=== PATIENT | female | born 1955 | race African-American/Black ===

== ENCOUNTER 2017-05-07 09:08 | Emergency (ER) | payer MEDICARE, MEDICAID ==
[2017-05-07 10:23] LABS: Bilirubin Negative (Negative); Blood, Urine Small (Negative); Glucose, Urine (Dipstick) Negative (Negative); Ketone, Urine Negative (Negative); Nitrite Negative (Negative); Protein, Urine (Dipstick) 100 mg/dL (Neg-Trace); Urobilinogen 0.2 mg/dL (0.2-1.0)
[2017-05-07 10:25] LABS: Bacteria/HPF 1+ HPF (None Seen)
[2017-05-07 10:42] LABS: Hyaline Casts/LPF 0-3 HYALINE CAST LPF (0-3 Hyaline); RBC/HPF 0-3 HPF (0-3); Yeast-All Forms None Seen HPF (None Seen)
[2017-05-07 10:42] LABS: #Eosinphils 0.4 thou/uL (0.0-0.7); #Lymphocytes 1.8 thou/uL (1.20-3.40); #Monocytes 0.7 thou/uL (0.11-0.59); #Neutrophils 5.1 thou/uL (1.40-6.50); %Basophils 0.2 % (0.0-1.0); %Eosinophils 4.4 % (0.0-10.0); %Lymphocytes 21.9 % (21.0-51.0); %Monocytes 9.3 % (0.0-10.0); Hematocrit 38.2 % (36.0-47.0); Mean Platelet Volume 8.3 fL (7.4-10.4)
[2017-05-07 10:50] LABS: Lactic Acid - Sepsis 1.5 mmol/L (0.5-2.2)
[2017-05-07 10:54] LABS: ALT (SGPT) Less than 7 U/L (8-55); AST (SGOT) 13 U/L (5-34); Alkaline Phosphatase 144 U/L (40-150); Anion Gap 11 mmol/L (10-20); BUN (Urea Nitrogen) 14 mg/dL (9.8-20.1); Bilirubin, Total 0.3 mg/dL (0.2-1.2); CK (CPK) 129 U/L (29-168); Calc. Creatinine Clearance 0 mL/min (70-130); Calcium 9.5 mg/dL (7.8-10.44); Carbon Dioxide 22 mmol/L (22-29); Chloride 112 mmol/L (98-107); Estimated GFR-MDRD 28; Globulin 4.4 g/dL (2.4-3.5); Protein, Total 7.6 g/dL (6.0-8.3)
[2017-05-07 10:59] LABS: Troponin I 0.022 ng/mL (< 0.028)
[2017-05-07] MEDS ORDERED: Ondansetron ODT 4 MG TAB ONE (11:46)
[2017-05-07] MEDS ORDERED: cefTRIAXone\\ROCEPHIN 500 MG VIAL ONE (12:15)
[2017-05-07] MEDS ORDERED: Lidocaine 1% PF 5 ML VIAL ONE (12:15)
== END 2017-05-07 12:43 | disposition home or self-care (01) ==
LOC: ERS 09:08
DX: R11.0 Nausea (principal); R19.7 Diarrhea, unspecified; F32.9 Major depressive disorder, single episode, unspecified; E11.22 Type 2 diabetes mellitus with diabetic chronic kidney disease; I12.0 Hypertensive chronic kidney disease with stage 5 chronic kidney disease or end stage renal disease; N18.6 End stage renal disease; Z79.82 Long term (current) use of aspirin; Z79.899 Other long term (current) drug therapy
CPT/HCPCS: 36415; 80053; 81003; 81015; 82550; 82553; 83605; 83880; 84484; 85025; 87086; J0696; J2001; Q0162

== ENCOUNTER 2017-05-07 19:56 | Emergency (ER) | payer MEDICARE, OTHER ==
[2017-05-07] MEDS ORDERED: Metoclopramide HCl 10 MG/2 ML VIAL ONE (21:33)
== END 2017-05-07 23:59 | disposition home or self-care (01) ==
LOC: ERS 19:56
DX: R19.7 Diarrhea, unspecified (principal); R11.0 Nausea; I12.0 Hypertensive chronic kidney disease with stage 5 chronic kidney disease or end stage renal disease; E11.22 Type 2 diabetes mellitus with diabetic chronic kidney disease; N18.6 End stage renal disease; F32.9 Major depressive disorder, single episode, unspecified; Z85.41 Personal history of malignant neoplasm of cervix uteri; Z79.899 Other long term (current) drug therapy; Z79.82 Long term (current) use of aspirin
CPT/HCPCS: 36415; 80053; 81003; 81015; 82550; 82553; 83605; 83880; 84484; 85025; 87086; 96365; 96372; J0696; J2001; J2765; Q0162

== ENCOUNTER 2018-02-25 12:18 | Outpatient (CLI) | payer MEDICARE, MEDICAID ==
--- NOTE | 2018-02-25 14:32 | RAD ---
TWO VIEW CHEST: History: Cervical cancer follow up. Comparison: 12-30-13 FINDINGS: Lungs appear clear of infiltrate. Heart size upper normal. The vascular markings are upper normal. Os seous structures appear unremarkable. IMPRESSION: No evidence of acute abnormality. POS: [facility]
== END 2018-02-25 12:19 | disposition home or self-care (01) ==
LOC: BICRAD 12:18
PROVIDERS: ATTEND Family Medicine
DX: C79.9 Secondary malignant neoplasm of unspecified site (principal)
CPT/HCPCS: 71046

== ENCOUNTER 2019-03-10 11:03 | Outpatient (CLI) | payer MEDICARE, MEDICAID ==
--- NOTE | 2019-03-10 12:54 | MMO ---
Bilateral MAMMO Bilat Screen DDI+WHIT. CLINICAL HISTORY: Patient is 63 years old and is seen for screening. The patient has the following family history of breast cancer: cousin gender unknown, Paternal. The patient has a history of cervical cancer in 2003. VIEWS: The views performed were: bilateral craniocaudal with tomosynthesis and bilateral mediolateral oblique with tomosynthesis. FILMS COMPARED: The present examination has been compared to prior imaging studies performed at [facility] on 03/06/2006, 06/09/2007, 06/16/2008 and 07/27/2009. This study has been interpreted with the assistance of computer-aided detection. MAMMOGRAM FINDINGS: The breasts are almost entirely fat. There is a new equal density, lobular mass measuring 23 millimeters with circumscribed margins seen in the upper-outer region of the right breast. In the left breast, there are no suspicious masses, calcifications or areas of architectural distortion. IMPRESSION: NEW MASS IN THE RIGHT BREAST REQUIRES ADDITIONAL EVALUATION. AN ULTRASOUND EXAM IS RECOMMENDED. THE RESULTS OF THIS EXAM WERE SENT TO THE PATIENT. ACR BI-RADS Category 0 - Incomplete: Need additional imaging evaluation. [facility] will notify the patient of the need for additional imaging services. MAMMOGRAPHY NOTE: 1. A negative mammogram report should not delay a biopsy if a dominant of clinically suspicious mass is present. 2. Approximately 10% to 15% of breast cancers are not detected by mammography. 3. Adenosis and dense breasts may obscure an underlying neoplasm. Reported by: TOBY ELLINGTON MD Electonically Signed: [id number]
== END 2019-03-10 11:04 | disposition home or self-care (01) ==
LOC: BICMAMMO 11:03
PROVIDERS: ATTEND Physician Assistant Medical
DX: Z12.31 Encounter for screening mammogram for malignant neoplasm of breast (principal); N63.10 Unspecified lump in the right breast, unspecified quadrant; Z80.3 Family history of malignant neoplasm of breast; Z85.41 Personal history of malignant neoplasm of cervix uteri
CPT/HCPCS: 77063; 77067

== ENCOUNTER 2019-03-27 10:18 | Outpatient (CLI) | payer MEDICARE, MEDICAID ==
--- NOTE | 2019-03-27 11:38 | MMO ---
Right Breast MAMMO Unilat Diag DDI RT. CLINICAL HISTORY: Patient is 63 years old and is seen for diagnostic exam. VIEWS: The views performed were: . FILMS COMPARED: The present examination has been compared to prior imaging studies performed at [facility] on 06/16/2008, 07/27/2009, 03/10/2019 and 03/27/2019. This study has been interpreted with the assistance of computer-aided detection. MAMMOGRAM FINDINGS: The breast is almost entirely fat. There is a new biopsy clip seen in the right breast. IMPRESSION: NEW BIOPSY CLIP IN THE RIGHT BREAST IS CONFIRMED UTILIZING POST PROCEDURE MAMMOGRAM. THE RESULTS OF THIS EXAM WERE SENT TO THE PATIENT. MAMMOGRAPHY NOTE: 1. A negative mammogram report should not delay a biopsy if a dominant of clinically suspicious mass is present. 2. Approximately 10% to 15% of breast cancers are not detected by mammography. 3. Adenosis and dense breasts may obscure an underlying neoplasm. Reported by: TOBY ELLINGTON MD Electonically Signed: [id number]
--- NOTE | 2019-03-27 12:22 | ULT ---
LIMITED RIGHT BREAST ULTRASOUND: Date: 02/24/19 PROVIDED CLINICAL HISTORY: Abnormal mammogram. FINDINGS: Limited sonographic interrogation of the right breast is performed in the region of mammographic conc dana. There is a lobulated, hypoechoic mass measuring approximately 2.2 cm at the 10 o'clock position of the right breast, corresponding to the mammogram finding. IMPRESSION: BI-RADS Category 4 - Suspicious abnormality. Ultrasound-guided biopsy is recommended. Results and recommendations discussed with the patient and questions answered. POS: OFF
--- NOTE | 2019-03-27 13:07 | ULT ---
ULTRASOUND GUIDED RIGHT BREAST BIOPSY: Date: 03/27/19 PROVIDED CLINICAL HISTORY: Right breast mass. FINDINGS: Informed consent was obtained from the patient. The patient was placed on the sonography table in the supine position and the previously described 10 o'clock right breast mass was localized sonographica lly. The skin overlying this region was prepped and draped in the usual sterile manner. The soft tiss ues were infiltrated with 1% buffered lidocaine. A small skin incision was made. Under continuous son ographic guidance, a core biopsy device was utilized to obtain four core samples. Subsequently, juli nuous sonographic guidance was utilized to deploy a biopsy site marker adjacent to the mass. [place] were withdrawn and hemostasis achieved. No immediate complications. Post biopsy mammograms demonstrat e appropriate clip deployment. IMPRESSION: Technically successful ultrasound guided right breast biopsy. Please correlate with histology results to follow. POS: OFF
== END 2019-03-27 10:19 | disposition home or self-care (01) ==
LOC: BICULT 10:18
PROVIDERS: ATTEND Physician Assistant Medical
DX: N63.10 Unspecified lump in the right breast, unspecified quadrant (principal); Z98.890 Other specified postprocedural states
CPT/HCPCS: 19083; 88305; 88341; 88342

== ENCOUNTER 2019-07-26 09:50 | Observation (INO) | payer MEDICARE, MEDICAID ==
[2019-07-26] MEDS ORDERED: Acetaminophen 500 MG TAB ONE (10:15)
--- NOTE | 2019-07-26 10:34 | RAD ---
XR Knee Rt 4 View STANDARD HISTORY: Right knee pain FINDINGS: No fracture or dislocation is identified. Degenerative changes are seen manifested by osteophyte form ation and joint space narrowing, most prominent in the medial tibiofemoral and patellofemoral compartments. A joint effusion is present.
--- NOTE | 2019-07-26 10:35 | RAD ---
XR Knee Lt 4 View STANDARD HISTORY: Left knee pain FINDINGS: No fracture or dislocation is identified. Degenerative changes are seen manifested by osteophyte form ation and joint space narrowing.
[2019-07-26 11:41] LABS: Hemoglobin 11.3 g/dL (12.0-16.0); Mean Corpuscular HGB CONC 33.8 g/dL (32.0-36.0); Mean Corpuscular Hemoglobin 35.4 pg (27.0-31.0); Mean Platelet Volume 8.4 fL (7.4-10.4); Platelet Count 114 thou/uL (130-400); RBC Distribution Width 15.5 % (11.5-14.5); Red Blood Cell (RBC) Count 3.18 mill/uL (4.20-5.40); White Blood Cell (WBC) Count 8.7 thou/uL (4.8-10.8)
[2019-07-26 11:58] LABS: #Basophils 0.1 thou/uL (0.0-0.2); #Eosinphils 0.4 thou/uL (0.0-0.7); #Lymphocytes 1.6 thou/uL (1.20-3.40); #Monocytes 0.7 thou/uL (0.11-0.59); %Basophils 0.8 % (0.0-1.0); %Eosinophils 4.5 % (0.0-10.0); %Lymphocytes 18.6 % (21.0-51.0); %Monocytes 7.6 % (0.0-10.0); %Neutrophils 68.5 % (42.0-75.0); Large Platelets SLIGHT; MDiff Complete? YES; Macrocytosis SLIGHT = 6-15 cells (100X) (0-5/hpf); Platelet Morphology Comment Appears Decreased
[2019-07-26 12:03] LABS: ALT (SGPT) 19 U/L (8-55); AST (SGOT) 53 U/L (5-34); Albumin 2.9 g/dL (3.4-4.8); Alkaline Phosphatase 126 U/L (40-110); Anion Gap 8 mmol/L (10-20); BUN (Urea Nitrogen) 14 mg/dL (9.8-20.1); Bilirubin, Total 0.4 mg/dL (0.2-1.2); Calc. Creatinine Clearance 0 mL/min (70-130); Carbon Dioxide 24 mmol/L (23-31); Chloride 111 mmol/L (98-107); Estimated GFR-MDRD 31; Globulin 3.7 g/dL (2.4-3.5); Glucose 94 mg/dL (80-115); Potassium 3.7 mmol/L (3.5-5.1); Protein, Total 6.6 g/dL (6.0-8.3); Sodium 139 mmol/L (136-145)
[2019-07-26 12:19] LABS: Bacteria/HPF 1+ HPF (None Seen); Bilirubin Negative (Negative); Blood, Urine 2+ (Negative); Clarity Clear (Clear); Glucose, Urine (Dipstick) Normal (Negative); Leukocyte Negative Leu/uL (Negative); Nitrite Negative (Negative); Protein, Urine (Dipstick) 10 mg/dL (Neg-Trace); RBC/HPF None Seen HPF (0-3); Squamous Epithelial 0-3 HPF (0-3); Urobilinogen Normal mg/dL (Less than 2); WBC/HPF 0-3 HPF (0-3)
[2019-07-26] MEDS ORDERED: Dextrose 5% in Water 1,000 ML IV PRN (16:53)
[2019-07-26] MEDS ORDERED: HumaLOG 300 UNITS/3 ML VIAL SC PRN ×2 (16:53)
[2019-07-26] MEDS ORDERED: Dextrose 50% Abboject 50 ML SYRINGE SLOW IVP PRN (16:53)
[2019-07-26 17:57] VITALS: BMI 52.9
--- NOTE | 2019-07-26 18:20 | HP ---
PRIMARY CARE PHYSICIAN: Charlene Dias MD CHIEF COMPLAINT: "My legs collapsed." HISTORY OF PRESENT ILLNESS: A 63-year-old female with history of diabetes type 2, hypertension, dyslipidemia, GERD, mood disorder, chronic kidney disease stage 3/ 4, who presents to the emergency room with the above complaint. The patient reports that she has had ongoing knee problems including pain, arthritis, and difficulty walking. She reports it has been worse over the past week and today her knees are "gone," and she has been unable to walk at all. She reports prior to today, buckling, popping, and cracking with her knees and requiring assistance to even be able to get into a car. Because of the worsening today, she was brought to the emergency room. The patient reports ongoing knee issues and she was told she has rafl-pi-[id number] for both of her knees, has undergone injections years ago, but has not completed physical therapy. She does not take any medicine for pain, does report that she will have leg swelling. She denies any precipitating factors or relieving factors. In the emergency room, Inpatient Rehab was contacted and declined the patient for transfer there secondary to insurance. She is unsafe for discharge to home due to inability to even transfer with assistance, and therefore, Hospitalist called for admission. ALLERGIES: 1. IODINE. 2. METFORMIN. CURRENT MEDICATIONS: Reconciled with the box that she brought in. However, she does note there are two medications that are not included, 1. Ropinirole, unknown dosing and intervals. 2. Isosorbide, unknown type dosing and interval. 3. Vitamin D 1000 units daily. 4. Metoprolol tartrate 50 mg b.i.d. 5. Omeprazole 20 mg daily. 6. Tradjenta 5 mg daily. 7. Sertraline 150 mg daily. 8. Atorvastatin 10 mg at bedtime. 9. Ambien 10 mg at bedtime. 10. Vitamin C 500 mg. 11. Ranitidine 300 mg at bedtime. 12. Calcitriol 0.25 mcg at bedtime. 13. Oxybutynin 5 mg two tablets at bedtime. PAST MEDICAL HISTORY: 1. Type 2 diabetes. 2. Hypertension. 3. Dyslipidemia. 4. Cervical cancer status post hysterectomy, chemotherapy, radiation therapy. 5. Chronic kidney disease, stage 3/4, followed by Dr. Dumont. 6. Dyslipidemia. 7. GERD. 8. Mood disorder. 9. Morbid obesity. PAST SURGICAL HISTORY: 1. Lap band. 2. Cholecystectomy. 3. Hysterectomy. 4. Right eye lens placement. SOCIAL HISTORY: She lives with her son. Denies any alcohol or tobacco. Her son or daughter are her surrogate decision makers, and she is a full code. FAMILY HISTORY: Significant for diabetes and hypertension. REVIEW OF SYSTEMS: Positive for chills, which she reports are chronic and unchanged. Negative for fevers, nausea, vomiting, abdominal pain, chest pain, difficulty breathing. All other review of systems are reviewed and negative. PHYSICAL EXAMINATION: VITAL SIGNS: Blood pressure 138/87, pulse 59, respirations 17, temperature 97.8 , and saturation 100% on room air. Pain is 9/10 in severity. GENERAL: Awake, alert, responsive, in no apparent distress. Able to speak in full sentences. HEENT: Her pupils are equal and round. Oral mucosa is pink and moist. She is edentulous. NECK: Supple, nontender. LYMPHATICS: No palpable anterior cervical lymphadenopathy. LUNGS: Clear to auscultation bilaterally. No audible wheezing, rhonchi, or rales. HEART: Normal S1 and S2. Regular rate and rhythm. No significant murmur. ABDOMEN: Soft with present bowel sounds, nontender, nondistended. EXTREMITIES: No clubbing, cyanosis, or edema. NEURO: No gross deficits. PSYCH: Appears euthymic, l/l/gd thought process. LABORATORY DATA: Reviewed. CBC: 8.7, 11.3, 33.4, 114. Renal panel: 139, 3.7, 111, 24, 14, 1.96, 94. Creatinine range 2 years ago was between 1.94 and 2.59. T bilirubin 0.4, AST 53, ALT 19, alkaline phosphatase 126, total protein 6.6, albumin 2.9. Urinalysis, negative nitrite, leukocyte esterase, 2+ blood, but no red blood cells seen, 1+ bacteria. Knee x-ray, these are personally reviewed. No fracture or dislocation. Degenerative changes on the left. Right knee x-ray, no fracture or dislocation. Degenerative changes and a joint effusion. IMPRESSION: 1. Weakness, [id number]-dv-[id number] knee pain with inability to ambulate. 2. Diabetes mellitus, type 2. 3. Hypertension. 4. Dyslipidemia. 5. Chronic kidney disease, stage 3/4. 6. Anemia, mild, likely secondary to chronic kidney disease. 7. Mood disorder. 8. Morbid obesity. 9. Slightly elevated alkaline phosphatase. PLAN: 1. Observation status in the hospital. 2. Consult PT, OT. Manage pain with Tylenol or tramadol. We will consult Orthopedics given the joint effusion to see if it is possible to aspirate, and if there is any consideration for steroid injections. 3. Case management consultation for placement as the patient is not safe for discharge to home. 4. Continuing her usual home medications. She has most of them with her, requested that somebody either bring in her call and her other medications that are not included in her current box. 5. DVT prophylaxis with enoxaparin and SCDs. 6. GI prophylaxis not indicated. She is already on a PPI and an H2 robinson. 7. Code status is full. Surrogate decision maker is her son or daughter as noted above. 8. The patient is at high risk given age comorbidities and current presentation. 9. Reviewed the plan of care with the patient who demonstrates understanding, no questions or further needs at end of evaluation. Job ID: [id number] [facility]
[2019-07-26] MEDS: traMADol HCl 50 MG TAB PO PRN (20:19)
[2019-07-26] MEDS: Calcitriol 0.25 MCG CAP PO SCH (20:25)
[2019-07-26] MEDS: Atorvastatin Calcium 10 MG TAB PO SCH (20:25)
[2019-07-26] MEDS: Famotidine 20 MG TAB PO SCH (20:25)
[2019-07-26] MEDS: Metoprolol Tartrate 50 MG TAB PO SCH (20:26)
[2019-07-26] MEDS: Oxybutynin ER 5 MG TAB PO SCH (20:26)
[2019-07-26] MEDS: Zolpidem Tartrate 5 MG TAB PO SCH (22:07)
[2019-07-27] MEDS: Metoprolol Tartrate 50 MG TAB PO SCH ×2 (08:08→20:14)
[2019-07-27] MEDS: Enoxaparin Sodium 40 MG/0.4 ML SYRINGE SC SCH (08:09)
[2019-07-27] MEDS ORDERED: Prevnar 13-Val Conj/PF 0.5 ML SYRINGE IM ONE (09:00)
[2019-07-27] MEDS ORDERED: FLU VACC QS2019-20(6MOS UP)/PF 60 MCG/0.5 ML SYRINGE IM ONE (09:00)
--- NOTE | 2019-07-27 11:52 | PDOC.HOSPP ---
- Subjective Encounter Date: 07/27/19 Encounter Time: 11:51 Subjective: pain in both knees, can't stand without severe bilat knee pain - Objective Vital Signs & Weight: Vital Signs (12 hours) Temp Pulse Resp BP Pulse Ox 07/27/19 07:27 98.2 F 66 18 118/73 97 07/27/19 04:00 98.3 F 70 18 117/68 98 Weight Weight 348 lb 5.286 oz I&O: 07/26/19 07/27/19 07/28/19 06:59 06:59 06:59 Output Total 900 Balance -900 Result Diagrams: 07/26/19 11:32 07/26/19 11:32 Additional Labs: Accuchecks 07/27/19 07/26/19 04:03 20:38 POC Glucose 92 96 Hospitalist ROS - Medication Medications: Active Medications Generic Name Dose Route Start Last Admin Trade Name Freq PRN Reason Stop Dose Admin Atorvastatin Calcium 10 mg 07/26/19 21:00 07/26/19 20:25 Lipitor PO 10 mg HS KAM Administration Calcitriol 0.25 mcg 07/26/19 21:00 07/26/19 20:25 Rocaltrol PO 0.25 mcg HS KAM Administration Enoxaparin Sodium 40 mg 07/27/19 09:00 07/27/19 08:09 Lovenox SC Not Given 899 KAM Famotidine 20 mg 07/26/19 21:00 07/26/19 20:25 Pepcid PO 20 mg HS KAM Administration Metoprolol Tartrate 50 mg 07/26/19 21:00 07/27/19 08:08 Lopressor PO 50 mg BID KAM Administration Oxybutynin Chloride 10 mg 07/26/19 21:00 07/26/19 20:26 Ditropan Xl PO 10 mg HS KAM Administration Pantoprazole Sodium 40 mg 07/27/19 09:00 07/27/19 08:09 Protonix PO 40 mg DAILY KAM Administration Sertraline HCl 150 mg 07/27/19 09:00 07/27/19 08:08 Zoloft PO 150 mg DAILY KAM Administration Tramadol HCl 50 mg 07/26/19 17:14 07/26/19 20:19 Ultram PO 50 mg Q4H PRN Administration Moderate to Severe Pain (6-10) Zolpidem Tartrate 10 mg 07/26/19 21:00 07/26/19 22:07 Ambien PO 10 mg HS KAM Administration - Exam General Appearance: awake alert Neck: no JVD Heart: RRR, no murmur Respiratory: CTAB Gastrointestinal: soft, normal bowel sounds Extremities: no edema Extremities - other findings: minimal tenderness to exam both knees Hosp A/P (1) Osteoarthritis of both knees Code(s): M17.0 - BILATERAL PRIMARY OSTEOARTHRITIS OF KNEE Status: Acute (2) DM type 2 (diabetes mellitus, type 2) Status: Acute Qualifiers: Diabetes mellitus long term acute care registered nurse insulin use: without senior living use Diabetes mellitus complication status: with kidney complications Diabetes mellitus complication detail: with chronic kidney disease Chronic kidney disease stage : stage 4 (severe) Qualified Code(s): E11.22 - Type 2 diabetes mellitus with diabetic chronic kidney disease; N18.4 - Chronic kidney disease, stage 4 (severe ) (3) HTN (hypertension) Code(s): I10 - ESSENTIAL (PRIMARY) HYPERTENSION Status: Chronic Qualifiers: Hypertension type: essential hypertension Qualified Code(s): I10 - Essential (primary) hypertension (4) Dyslipidemia Code(s): E78.5 - HYPERLIPIDEMIA, UNSPECIFIED Status: Chronic - Plan major problem is osteoarthritis aggravted by morbid obesity and deconditioning await ortho opinion selectsd home meds g
[2019-07-27] MEDS: traMADol HCl 50 MG TAB PO PRN ×2 (13:06→18:08)
--- NOTE | 2019-07-27 13:31 | CON ---
DATE OF CONSULTATION: REQUESTING PHYSICIAN: Nancy Douglass MD CONSULTING PHYSICIAN: Dwaine Renner MD REASON FOR CONSULTATION: Bilateral osteoarthritis of the knees. HISTORY OF PRESENT ILLNESS: Mena is a 63-year-old female who was admitted to the Medicine team for inability to stand and walk. Apparently, this problem has become progressive over the last few months, but she has always had some discomfort in her knees. Also of significance, the patient is morbidly obese. This has been a chronic problem as well. Upon direct questioning, she tells me that her legs are "weak." I asked her repeatedly about pain and discomfort, but she admits more to popping and buckling and inability to "raise them or stand up." Pain does not seem to be her chief complaint regarding her knees and she has always had some discomfort, but more recently she has been unable to overcome gravity and arise from a seated to a standing position. In the past, she has been told she has rqyo-sw-wzsq arthritis and she has had injections many years ago, but apparently this did not seem to help very long and this is not something she pursued. I am under the impression that the precipitation of her inability to stand and walk and get around independently and is what precipitated her to present to the emergency room for evaluation and thus admission. Plain radiographs accompanied the patient of both knees, which demonstrate moderate osteoarthritis and nvon-dh-lgyw arthrosis in what appears to be chronic genu varum. PHYSICAL EXAMINATION: The patient's pain is non-provocative with internal and external rotation of the hips. She can barely straight leg raise and overall she has pendulous torso with an essentially an abdominal apron down to the mid thighs and almost to her knees. Her knee examination however demonstrates a little bit of discomfort with flexion, extension, but her knees are stable to varus and valgus stressing. She has good dorsiflexion, inversion, eversion. I see no gross atrophy, but again this is a difficult exam to perform. There are no effusions in either of the knees. The patellas are stable and ballottement is negative bilaterally. Then, she has 5/5 strength with dorsiflexion, inversion, and eversion. I see no fasciculations or atrophy and no clonus is identified either. Reflexes are tough to evaluate, but she has adequate strength in her upper extremities, primarily her hands and arms. 5 /5 strength is noted in elbow flexion extension bilaterally. She has good medical sonographer strength bilaterally. No skin changes are noted. IMAGING STUDIES: AP and lateral of both knees were obtained, which demonstrate what I would read is moderate osteoarthritis with narrowing of the medial joint line is appreciated on AP view, and she has some periarticular osteophyte formation as well. IMPRESSION: In putting together the patient's history, examination, and radiographs, I do not think that the arthritic knees are the reason that she cannot mobilize. Certainly, they are contributing factors, but it is my guess that her overall size and obesity has essentially overcome her strength to mobilize. By history, this has been a progressive problem and I believe she has even failed Lap-Band surgery. The images of her knees are little advanced for age, but again the arthritic changes do not support immobility and the range of motion that I saw on examination, this patient should otherwise be able to stand and mobilize. She certainly has arthritis bilaterally, but not to the point it should inhibit mobility. She has had intra-articular injections in the past, but did not receive a significant benefit from it. If there is further concern for an abrupt change in neuromuscular status, one might consider spinal stenosis or other neuromuscular issues that may contribute to subacute deterioration. I am skeptical that intra-articular injections will be the solution to this problem and this is usually the type of problem we see as an outpatient. However, if the admitting team feels as though it will contribute to her being discharged, we can try corticosteroid arthrocentesis. I will discuss with the admitting team later today and we will come up with a plan. Also, this patient with stage 3 renal disease and diabetes, is a poor candidate for surgical consideration. Job ID: [id number] [facility]
[2019-07-27] MEDS: Zolpidem Tartrate 5 MG TAB PO SCH (20:12)
[2019-07-27] MEDS: Calcitriol 0.25 MCG CAP PO SCH (20:12)
[2019-07-27] MEDS: Atorvastatin Calcium 10 MG TAB PO SCH (20:13)
[2019-07-27] MEDS: Oxybutynin ER 5 MG TAB PO SCH (20:13)
[2019-07-27] MEDS: Famotidine 20 MG TAB PO SCH (20:14)
[2019-07-27] MEDS: rOPINIRole HCl 1 MG TAB PO SCH (21:51)
[2019-07-28] MEDS: Acetaminophen 325 MG TAB PO PRN (04:54)
[2019-07-28] MEDS: Metoprolol Tartrate 50 MG TAB PO SCH ×2 (07:51→20:35)
[2019-07-28] MEDS: Enoxaparin Sodium 40 MG/0.4 ML SYRINGE SC SCH (07:53)
--- NOTE | 2019-07-28 11:53 | PDOC.HOSPP ---
- Subjective Encounter Date: 07/28/19 Encounter Time: 11:48 Subjective: no change, unable to bear weight - Objective Vital Signs & Weight: Vital Signs (12 hours) Temp Pulse Resp BP Pulse Ox 07/28/19 07:29 98.2 F 64 18 127/76 97 07/28/19 04:49 98.4 F 67 18 114/67 97 07/28/19 00:00 98.4 F 65 18 147/80 H 98 Weight Weight 348 lb 5.286 oz I&O: 07/27/19 07/28/19 07/29/19 06:59 06:59 06:59 Intake Total 240 Output Total 900 Balance -900 240 Result Diagrams: 07/26/19 11:32 07/26/19 11:32 Additional Labs: Accuchecks 07/28/19 07/27/19 07/27/19 04:51 19:36 16:47 POC Glucose 94 101 84 07/27/19 11:25 POC Glucose 94 Hospitalist ROS - Medication Medications: Active Medications Generic Name Dose Route Start Last Admin Trade Name Freq PRN Reason Stop Dose Admin Acetaminophen 650 mg 07/26/19 16:53 07/28/19 04:54 Tylenol PO 650 mg Q6H PRN Administration Headache/Fever/Mild Pain (1-3) Atorvastatin Calcium 10 mg 07/26/19 21:00 07/27/19 20:13 Lipitor PO 10 mg HS KAM Administration Calcitriol 0.25 mcg 07/26/19 21:00 07/27/19 20:12 Rocaltrol PO 0.25 mcg HS KAM Administration Enoxaparin Sodium 40 mg 07/27/19 09:00 07/28/19 07:53 Lovenox SC 40 mg 09 KAM Administration Famotidine 20 mg 07/26/19 21:00 07/27/19 20:14 Pepcid PO 20 mg HS KAM Administration Metoprolol Tartrate 50 mg 07/26/19 21:00 07/28/19 07:51 Lopressor PO 50 mg BID KAM Administration Oxybutynin Chloride 10 mg 07/26/19 21:00 07/27/19 20:13 Ditropan Xl PO 10 mg HS KAM Administration Pantoprazole Sodium 40 mg 07/27/19 09:00 07/28/19 07:50 Protonix PO 40 mg DAILY KAM Administration Ropinirole HCl 1 mg 07/27/19 22:00 07/27/19 21:51 Requip PO 1 mg 2200 KAM Administration Sertraline HCl 150 mg 07/27/19 09:00 07/28/19 07:51 Zoloft PO 150 mg DAILY KAM Administration Tramadol HCl 50 mg 07/26/19 17:14 07/27/19 18:08 Ultram PO 50 mg Q4H PRN Administration Moderate to Severe Pain (6-10) Zolpidem Tartrate 10 mg 07/26/19 21:00 07/27/19 20:12 Ambien PO 10 mg HS KAM Administration - Exam General Appearance: awake alert Neck: no JVD Heart: RRR Respiratory: CTAB Gastrointestinal: soft, normal bowel sounds Extremities: no edema Extremities - other findings: knees, no effusion or focal tenderness Hosp A/P (1) Osteoarthritis of both knees Code(s): M17.0 - BILATERAL PRIMARY OSTEOARTHRITIS OF KNEE Status: Acute Qualifiers: Osteoarthritis type: unspecified Qualified Code(s): M17.0 - Bilateral primary osteoarthritis of knee (2) DM type 2 (diabetes mellitus, type 2) Status: Acute Qualifiers: Diabetes mellitus local company intermodal truck driver insulin use: without local company intermodal truck driver use Diabetes mellitus complication status: with kidney complications Diabetes mellitus complication detail: with chronic kidney disease Chronic kidney disease stage : stage 4 (severe) Qualified Code(s): E11.22 - Type 2 diabetes mellitus with diabetic chronic kidney disease; N18.4 - Chronic kidney disease, stage 4 (severe ) (3) HTN (hypertension) Code(s): I10 - ESSENTIAL (PRIMARY) HYPERTENSION Status: Chronic Qualifiers: Hypertension type: essential hypertension Qualified Code(s): I10 - Essential (primary) hypertension (4) Dyslipidemia Code(s): E78.5 - HYPERLIPIDEMIA, UNSPECIFIED Status: Chronic - Plan major problem is osteoarthritis aggravated by morbid obesity and deconditioning await CM input for placement Rx modalities for OA limited by CKD selected home meds g
[2019-07-28] MEDS ORDERED: Ondansetron ODT 4 MG TAB PO PRN (13:24)
[2019-07-28] MEDS ORDERED: Ondansetron PF 4 MG/2 ML Vial IVP PRN (13:24)
[2019-07-28] MEDS: Famotidine 20 MG TAB PO SCH (20:34)
[2019-07-28] MEDS: Calcitriol 0.25 MCG CAP PO SCH (20:34)
[2019-07-28] MEDS: Atorvastatin Calcium 10 MG TAB PO SCH (20:34)
[2019-07-28] MEDS: Oxybutynin ER 5 MG TAB PO SCH (20:35)
[2019-07-28] MEDS: Zolpidem Tartrate 5 MG TAB PO SCH (20:35)
[2019-07-28] MEDS: rOPINIRole HCl 1 MG TAB PO SCH (22:04)
[2019-07-29] MEDS: Metoprolol Tartrate 50 MG TAB PO SCH ×2 (08:43→20:21)
[2019-07-29] MEDS: Enoxaparin Sodium 40 MG/0.4 ML SYRINGE SC SCH (08:44)
--- NOTE | 2019-07-29 13:48 | DIS ---
DATE OF ADMISSION: 07/26/2019 DATE OF DISCHARGE: 07/29/2019 PRIMARY CARE PHYSICIAN: Charlene Dias MD. DISCHARGE DISPOSITION: [facility]. PRIMARY DISCHARGE DIAGNOSES: Physical deconditioning secondary to bilateral osteoarthritis secondary to morbid obesity. SECONDARY DISCHARGE DIAGNOSES: Diabetes type 2, morbid obesity with BMI of 59, hypertension, and dyslipidemia. Chronic kidney disease stage 3, macrocytic anemia, restless legs syndrome, anxiety and depression, gastroesophageal reflux disease. PRIMARY PROCEDURE/OPERATION: None. RADIOLOGICAL INVESTIGATION: Knee x-ray showed finding suggestive of osteoarthritis. SIGNIFICANT LABORATORY DATA: WBC 8.7, hemoglobin 11.3, MCV 105, platelet of 114. Sodium 139, potassium 3.7, BUN 14, creatinine 1.96. Calcium 9.0. Urinalysis unremarkable. LFT abnormal with AST 53, ALT 19, alkaline phosphatase 126, and albumin 2.9. DISCHARGE MEDICATIONS: Vitamin C 500 mg p.o. nightly, Lipitor 10 mg p.o. at bedtime, calcitriol 0.25 mcg p.o. at bedtime, vitamin D3 1000 units p.o. daily, Tradjenta 5 mg daily, metoprolol 50 mg b.i.d., omeprazole 20 mg daily, Ditropan 10 mg at bedtime, ropinirole 1 mg p.o. nightly, Zoloft 150 mg p.o. daily, Ambien 10 mg p.o. nightly, Pepcid 20 mg p.o. at bedtime, Humalog insulin as per sliding scale. CONTRAINDICATION: None. CODE STATUS: Full code. INPATIENT WET WASHER MACHINE: Orthopedic physician with Irving Patel PA-C. HOSPITAL COURSE: A 63-year-old female, who was admitted by Nancy Douglass. Please see her H and P for further details. This patient was having physical deconditioning and immobility issue. She was found with bilateral knee osteoarthritis. She has underlying morbid obesity and significant physical deconditioning. We admitted this patient in the hospital for observation. The patient was requiring placement and that is why with help of vocational case manager, we arranged intermediate home. The patient is seen and examined at bedside today. PHYSICAL EXAMINATION: VITAL SIGNS: Currently, temperature 97.8, pulse rate 73, respiratory rate 18, saturation 97%, and blood pressure 130/81. Weight 348 pounds. GENERAL: The patient is currently alert, awake, in no acute distress. HEENT: Head; normocephalic and atraumatic. Eyes; pupils are round and reactive to light. Extraocular muscle intact. ENT, oropharynx within normal limits. Moist mucous membranes. No oral lesion. No pharyngeal erythema. No exudate. NECK: Supple. No JVD. No meningeal signs of irritation. LUNGS: Clear to auscultation without any rhonchi or rales. CARDIAC: S1 and S2 appears regular without any murmur. ABDOMEN: Morbid obesity limiting examination. EXTREMITIES: No edema. NEUROLOGIC: Nonfocal examination. Overall, the patient is medically stable for discharge today. Paperwork for discharge done and discharge medication reconciliation done. Job ID: [id number]
[2019-07-29] MEDS: Famotidine 20 MG TAB PO SCH (20:20)
[2019-07-29] MEDS: Atorvastatin Calcium 10 MG TAB PO SCH (20:20)
[2019-07-29] MEDS: Calcitriol 0.25 MCG CAP PO SCH (20:20)
[2019-07-29] MEDS: Zolpidem Tartrate 5 MG TAB PO SCH (20:21)
[2019-07-29] MEDS: Oxybutynin ER 5 MG TAB PO SCH (20:23)
[2019-07-29] MEDS: Acetaminophen 325 MG TAB PO PRN (20:23)
[2019-07-29] MEDS: traMADol HCl 50 MG TAB PO PRN (20:24)
[2019-07-29] MEDS: rOPINIRole HCl 1 MG TAB PO SCH (20:28)
[2019-07-30 07:29] VITALS: BP 121/72; TEMP 97.9
[2019-07-30] MEDS: Metoprolol Tartrate 50 MG TAB PO SCH (08:17)
[2019-07-30] MEDS: Enoxaparin Sodium 40 MG/0.4 ML SYRINGE SC SCH (08:17)
--- NOTE | 2019-07-30 16:25 | PDOC.HOSPP ---
- Subjective Encounter Date: 07/30/19 Encounter Time: 07:00 Subjective: Patient seen and examined. No new complaints. No overnight events - Objective Vital Signs & Weight: Vital Signs (12 hours) Temp Pulse Resp BP Pulse Ox 07/30/19 07:29 97.9 F 60 18 121/72 92 L Weight Weight 348 lb 5.286 oz I&O: 07/29/19 07/30/19 07/31/19 06:59 06:59 06:59 Intake Total 500 452 Output Total 700 1100 Balance -200 -648 Result Diagrams: 07/26/19 11:32 07/26/19 11:32 Additional Labs: Accuchecks 07/30/19 07/29/19 07/29/19 04:33 19:34 15:53 POC Glucose 90 86 97 Hospitalist ROS - Review of Systems ENT: denies: ear pain, ear discharge, nose pain, nose discharge, nose congestion , mouth pain, mouth swelling, throat pain, throat swelling, other Respiratory: denies: cough, dry, shortness of breath, hemoptysis, SOB with excertion, pleuritic pain, sputum, wheezing, other Cardiovascular: denies: chest pain, palpitations, orthopnea, paroxysmal noc. dyspnea, edema, light headedness, other Gastrointestinal: denies: nausea, vomiting, abdominal pain, diarrhea, constipation, melena, hematochezia, other Genitourinary: denies: dysuria, frequency, incontinence, hematuria, retention, other Musculoskeletal: denies: neck pain, shoulder pain, arm pain, back pain, hand pain, leg pain, foot pain, other - Exam General Appearance: NAD, awake alert Eye: PERRL, anicteric sclera ENT: normocephalic atraumatic, no oropharyngeal lesions Neck: supple, symmetric, no JVD Heart: RRR, no murmur, no gallops, no rubs Respiratory: CTAB, no wheezes, no rales, no ronchi Gastrointestinal: soft, non-tender, non-distended Extremities: no cyanosis, no clubbing Skin: normal turgor, no lesions Neurological: no focal deficits Musculoskeletal: normal tone, normal strength Hosp A/P (1) DM type 2 (diabetes mellitus, type 2) Status: Acute Qualifiers: Diabetes mellitus rodent exterminator insulin use: without rodent exterminator use Diabetes mellitus complication status: with kidney complications Diabetes mellitus complication detail: with chronic kidney disease Chronic kidney disease stage : stage 4 (severe) Qualified Code(s): E11.22 - Type 2 diabetes mellitus with diabetic chronic kidney disease; N18.4 - Chronic kidney disease, stage 4 (severe ) (2) Osteoarthritis of both knees Code(s): M17.0 - BILATERAL PRIMARY OSTEOARTHRITIS OF KNEE Status: Acute Qualifiers: Osteoarthritis type: unspecified Qualified Code(s): M17.0 - Bilateral primary osteoarthritis of knee (3) Dyslipidemia Code(s): E78.5 - HYPERLIPIDEMIA, UNSPECIFIED Status: Chronic (4) HTN (hypertension) Code(s): I10 - ESSENTIAL (PRIMARY) HYPERTENSION Status: Chronic Qualifiers: Hypertension type: essential hypertension Qualified Code(s): I10 - Essential (primary) hypertension - Plan old records reviewed/req dc to [facility] today see ashley fam from yesterday
--- NOTE | 2019-07-30 16:26 | PDOC.HOSPP ---
- Subjective Encounter Date: 07/29/19 Encounter Time: 10:00 Subjective: Patient seen and examined. No new complaints. No overnight events - Objective Vital Signs & Weight: Vital Signs (12 hours) Temp Pulse Resp BP Pulse Ox 07/30/19 07:29 97.9 F 60 18 121/72 92 L Weight Weight 348 lb 5.286 oz I&O: 07/29/19 07/30/19 07/31/19 06:59 06:59 06:59 Intake Total 500 452 Output Total 700 1100 Balance -200 -648 Result Diagrams: 07/26/19 11:32 07/26/19 11:32 Additional Labs: Accuchecks 07/30/19 07/29/19 07/29/19 04:33 19:34 15:53 POC Glucose 90 86 97 Hospitalist ROS - Review of Systems ENT: denies: ear pain, ear discharge, nose pain, nose discharge, nose congestion , mouth pain, mouth swelling, throat pain, throat swelling, other Respiratory: denies: cough, dry, shortness of breath, hemoptysis, SOB with excertion, pleuritic pain, sputum, wheezing, other Cardiovascular: denies: chest pain, palpitations, orthopnea, paroxysmal noc. dyspnea, edema, light headedness, other Gastrointestinal: denies: nausea, vomiting, abdominal pain, diarrhea, constipation, melena, hematochezia, other Genitourinary: denies: dysuria, frequency, incontinence, hematuria, retention, other - Exam General Appearance: NAD, awake alert Eye: PERRL, anicteric sclera ENT: normocephalic atraumatic, no oropharyngeal lesions Neck: symmetric, no JVD, no thyromegaly Heart: RRR, no murmur, no gallops Respiratory: CTAB, no wheezes, no rales Gastrointestinal: soft, non-tender, non-distended Extremities: no edema Skin: normal turgor, no lesions Neurological: cranial nerve grossly intact, no focal deficits Musculoskeletal: normal tone, normal strength Hosp A/P (1) DM type 2 (diabetes mellitus, type 2) Status: Acute Qualifiers: Diabetes mellitus salvage determiner insulin use: without salvage determiner use Diabetes mellitus complication status: with kidney complications Diabetes mellitus complication detail: with chronic kidney disease Chronic kidney disease stage : stage 4 (severe) Qualified Code(s): E11.22 - Type 2 diabetes mellitus with diabetic chronic kidney disease; N18.4 - Chronic kidney disease, stage 4 (severe ) (2) Osteoarthritis of both knees Code(s): M17.0 - BILATERAL PRIMARY OSTEOARTHRITIS OF KNEE Status: Acute Qualifiers: Osteoarthritis type: unspecified Qualified Code(s): M17.0 - Bilateral primary osteoarthritis of knee (3) Dyslipidemia Code(s): E78.5 - HYPERLIPIDEMIA, UNSPECIFIED Status: Chronic (4) HTN (hypertension) Code(s): I10 - ESSENTIAL (PRIMARY) HYPERTENSION Status: Chronic Qualifiers: Hypertension type: essential hypertension Qualified Code(s): I10 - Essential (primary) hypertension - Plan old records reviewed/req, PT/OT, social contact worker dc to [facility] today
== END 2019-07-30 08:48 ==
LOC: ERS 09:50 → INTOOBSV 15:54 → T4-B 15:54
PROVIDERS: ADMIT Family Medicine; ATTEND Family Medicine
DX: M17.0 Bilateral primary osteoarthritis of knee (principal); E11.22 Type 2 diabetes mellitus with diabetic chronic kidney disease; I12.9 Hypertensive chronic kidney disease with stage 1 through stage 4 chronic kidney disease, or unspecified chronic kidney disease; F32.9 Major depressive disorder, single episode, unspecified; F41.9 Anxiety disorder, unspecified; K21.9 Gastro-esophageal reflux disease without esophagitis; G25.81 Restless legs syndrome; E66.01 Morbid (severe) obesity due to excess calories; N18.3 Chronic kidney disease, stage 3 (moderate); E78.5 Hyperlipidemia, unspecified; D53.9 Nutritional anemia, unspecified; Z68.43 Body mass index [BMI] 50.0-59.9, adult; Z79.899 Other long term (current) drug therapy; Z79.4 Long term (current) use of insulin
CPT/HCPCS: 73564 ×2; 80053; 82962 ×5; 85025; 96372 ×3; 96374; 97110; 97139 ×4; 97530 ×2; 99284; G0378 ×6; 36415; 36416; 81003; 81015; J1650; J2405

== ENCOUNTER 2021-02-12 01:58 | Inpatient (IN) | payer MEDICARE, OTHER ==
[2021-02-12 05:45] VITALS: BMI 71.4
[2021-02-12] MEDS ORDERED: hydrALAZINE 20 MG/ML VIAL SLOW IVP PRN (06:45)
[2021-02-12] MEDS ORDERED: HYDROcodone/Acetaminophen 5/325 mg Tablet PO PRN (07:58)
[2021-02-12] MEDS ORDERED: Ondansetron PF 4 MG/2 ML Vial IVP PRN (07:58)
[2021-02-12] MEDS ORDERED: Acetaminophen 325 MG TAB PO PRN (07:58)
[2021-02-12] MEDS ORDERED: Bisacodyl 5 MG TAB PO PRN (07:58)
[2021-02-12] MEDS ORDERED: Ondansetron ODT 4 MG TAB PO PRN (07:58)
[2021-02-12 08:57] LABS: Anion Gap 12 mmol/L (10-20); BUN (Urea Nitrogen) 15 mg/dL (9.8-20.1); Calc. Creatinine Clearance 72 mL/min (70-130); Calcium 9.4 mg/dL (7.8-10.44); Carbon Dioxide 26 mmol/L (23-31); Chloride 106 mmol/L (98-107); Glucose 191 mg/dL (80-115); Potassium 4.6 mmol/L (3.5-5.1); Sodium 139 mmol/L (136-145)
[2021-02-12] MEDS ORDERED: Alogliptin 25 MG TAB PO SCH (09:00)
[2021-02-12] MEDS: Ferrous Gluconate 324 MG TAB PO SCH (09:06)
[2021-02-12] MEDS: Guaifenesin DM 100-10/5 ML UDCUP PO PRN (09:06)
[2021-02-12] MEDS: Metoprolol Tartrate 50 MG TAB PO SCH ×2 (09:06→20:27)
[2021-02-12] MEDS: Alogliptin 25 MG TAB PO SCH (09:11)
[2021-02-12] MEDS ORDERED: Dextrose 50% Abboject 50 ML SYRINGE SLOW IVP PRN (13:02)
[2021-02-12] MEDS ORDERED: Insulin Regular 300 UNITS/3 ML VIAL SC PRN (13:02)
[2021-02-12] MEDS ORDERED: Dextrose 5% in Water 1,000 ML IV PRN (13:02)
[2021-02-12] MEDS: Bumetanide 1 MG/4 ML VIAL IVP SCH (14:30)
[2021-02-12 17:01] LABS: Bacteria/HPF None Seen HPF (None Seen); Bilirubin Negative (Negative); Blood, Urine Negative (Negative); Clarity Clear (Clear); Glucose, Urine (Dipstick) Normal (Negative); Ketone, Urine Negative (Negative); Leukocyte Negative Leu/uL (Negative); Nitrite Negative (Negative); Protein, Urine (Dipstick) 50 mg/dL (Neg-Trace); RBC/HPF 0-3 HPF (0-3); Specific Gravity, Urine 1.009 (1.002-1.036); Squamous Epithelial 0-3 HPF (0-3); Urobilinogen Normal mg/dL (Less than 2); WBC/HPF 0-3 HPF (0-3); pH, Urine 5.5 (5.0-9.0)
[2021-02-12] MEDS: Calcitriol 0.25 MCG CAP PO SCH (20:26)
[2021-02-12] MEDS: Atorvastatin Calcium 10 MG TAB PO SCH (20:26)
[2021-02-12] MEDS: rOPINIRole HCl 1 MG TAB PO SCH (20:27)
[2021-02-12] MEDS: Oxybutynin 5 MG TAB PO SCH (20:27)
[2021-02-13 04:48] LABS: Anion Gap 9 mmol/L (10-20); BUN (Urea Nitrogen) 19 mg/dL (9.8-20.1); Calc. Creatinine Clearance 71 mL/min (70-130); Carbon Dioxide 28 mmol/L (23-31); Chloride 107 mmol/L (98-107); Glucose 120 mg/dL (80-115); Potassium 4.3 mmol/L (3.5-5.1); Sodium 140 mmol/L (136-145)
[2021-02-13 05:04] LABS: #Basophils 0.1 thou/uL (0.0-0.2); #Eosinphils 0.1 thou/uL (0.0-0.7); #Lymphocytes 1.8 thou/uL (1.20-3.40); #Monocytes 0.7 thou/uL (0.11-0.59); #Neutrophils 6.3 thou/uL (1.40-6.50); %Basophils 0.7 % (0.0-1.0); %Eosinophils 0.8 % (0.0-10.0); %Lymphocytes 20.2 % (21.0-51.0); %Neutrophils 70.3 % (42.0-75.0); Hemoglobin 9.8 g/dL (12.0-16.0); Mean Corpuscular HGB CONC 31.1 g/dL (32.0-36.0); Mean Corpuscular Hemoglobin 36.9 pg (27.0-31.0); Mean Platelet Volume 10.7 fL (7.4-10.4); Platelet Count 73 thou/uL (130-400); RBC Distribution Width 16.8 % (11.5-14.5); Red Blood Cell (RBC) Count 2.67 mill/uL (4.20-5.40)
[2021-02-13] MEDS: Bumetanide 1 MG/4 ML VIAL IVP SCH ×2 (07:03→15:25)
[2021-02-13] MEDS: Ferrous Gluconate 324 MG TAB PO SCH (09:52)
[2021-02-13] MEDS: Metoprolol Tartrate 50 MG TAB PO SCH ×2 (09:52→20:59)
[2021-02-13] MEDS: Alogliptin 25 MG TAB PO SCH (09:52)
[2021-02-13] MEDS: Guaifenesin DM 100-10/5 ML UDCUP PO PRN (20:58)
[2021-02-13] MEDS: Atorvastatin Calcium 10 MG TAB PO SCH (20:58)
[2021-02-13] MEDS: rOPINIRole HCl 1 MG TAB PO SCH (20:59)
[2021-02-13] MEDS: Oxybutynin 5 MG TAB PO SCH (20:59)
[2021-02-13] MEDS: Calcitriol 0.25 MCG CAP PO SCH (20:59)
[2021-02-14 05:06] LABS: #Basophils 0.1 thou/uL (0.0-0.2); #Eosinphils 0.4 thou/uL (0.0-0.7); #Lymphocytes 2.1 thou/uL (1.20-3.40); #Monocytes 0.6 thou/uL (0.11-0.59); #Neutrophils 4.1 thou/uL (1.40-6.50); %Basophils 0.9 % (0.0-1.0); %Eosinophils 6.2 % (0.0-10.0); %Lymphocytes 28.6 % (21.0-51.0); %Monocytes 7.6 % (0.0-10.0); %Neutrophils 56.8 % (42.0-75.0); Hemoglobin 9.9 g/dL (12.0-16.0); Mean Corpuscular HGB CONC 31.1 g/dL (32.0-36.0); Mean Corpuscular Hemoglobin 37.1 pg (27.0-31.0); Mean Platelet Volume 10.7 fL (7.4-10.4); Platelet Count 69 thou/uL (130-400); RBC Distribution Width 16.8 % (11.5-14.5); Red Blood Cell (RBC) Count 2.66 mill/uL (4.20-5.40); White Blood Cell (WBC) Count 7.3 thou/uL (4.8-10.8)
[2021-02-14 05:19] LABS: Anion Gap 6 mmol/L (10-20); BUN (Urea Nitrogen) 23 mg/dL (9.8-20.1); Calc. Creatinine Clearance 68 mL/min (70-130); Calcium 9.4 mg/dL (7.8-10.44); Carbon Dioxide 33 mmol/L (23-31); Chloride 105 mmol/L (98-107); Glucose 111 mg/dL (80-115); Potassium 4.3 mmol/L (3.5-5.1); Sodium 140 mmol/L (136-145)
[2021-02-14] MEDS: Bumetanide 1 MG/4 ML VIAL IVP SCH (05:42)
[2021-02-14] MEDS ORDERED: Metoprolol Tartrate 50 MG TAB PO SCH ×2 (07:47→09:00)
[2021-02-14] MEDS ORDERED: Metoprolol Tartrate 25 MG TAB PO SCH ×2 (09:00)
[2021-02-14] MEDS: Alogliptin 25 MG TAB PO SCH (09:06)
[2021-02-14] MEDS: Ferrous Gluconate 324 MG TAB PO SCH (09:07)
[2021-02-14] MEDS ORDERED: Prevnar 13-Val Conj/PF 0.5 ML SYRINGE IM ONE (10:15)
[2021-02-14 12:56] VITALS: TEMP 98.5
[2021-02-14 16:07] VITALS: BP 136/64
[2021-02-15] MEDS ORDERED: Furosemide 40 MG TAB PO SCH (07:30)
== END 2021-02-14 17:30 | disposition home health service (06) | DRG 291 ==
LOC: 2NO 05:26 → OBSVTOIN 02-14 11:25
PROVIDERS: ADMIT Student in an Organized Health Care Education/Training Program; ATTEND Hospitalist
DX: I13.0 Hypertensive heart and chronic kidney disease with heart failure and stage 1 through stage 4 chronic kidney disease, or unspecified chronic kidney disease (principal); I50.31 Acute diastolic (congestive) heart failure; J96.01 Acute respiratory failure with hypoxia; Z68.45 Body mass index [BMI] 70 or greater, adult; N18.4 Chronic kidney disease, stage 4 (severe); N17.9 Acute kidney failure, unspecified; E66.01 Morbid (severe) obesity due to excess calories; E78.5 Hyperlipidemia, unspecified; G47.33 Obstructive sleep apnea (adult) (pediatric); F41.9 Anxiety disorder, unspecified; I89.0 Lymphedema, not elsewhere classified; E11.22 Type 2 diabetes mellitus with diabetic chronic kidney disease; Z91.041 Radiographic dye allergy status; Z88.8 Allergy status to other drugs, medicaments and biological substances; Z79.82 Long term (current) use of aspirin; Z79.899 Other long term (current) drug therapy; Z98.890 Other specified postprocedural states; Z85.41 Personal history of malignant neoplasm of cervix uteri; Z90.710 Acquired absence of both cervix and uterus; Z90.722 Acquired absence of ovaries, bilateral
CPT/HCPCS: 36415; 36416; 80048; 81001; 83880; 85025; 93306; 96374; 96376; G0378; J3490

== ENCOUNTER 2021-10-02 19:00 | Outpatient (CLI) | payer MEDICARE, MEDICAID | END 2021-10-02 19:01 | disposition home or self-care (01) | LOC: SLEEPLAB 19:00 | PROVIDERS: ATTEND Student in an Organized Health Care Education/Training Program | DX: G47.33 Obstructive sleep apnea (adult) (pediatric) (principal); R53.83 Other fatigue; G31.84 Mild cognitive impairment of uncertain or unknown etiology; E66.9 Obesity, unspecified; R06.83 Snoring; I10 Essential (primary) hypertension; Z68.44 Body mass index [BMI] 60.0-69.9, adult | CPT/HCPCS: 95811 ==

== ENCOUNTER 2021-11-21 18:57 | Emergency (ER) | payer OTHER, MEDICAID ==
[2021-11-21 19:45] LABS: #Basophils 0.1 thou/uL (0.0-0.2); #Eosinphils 0.4 thou/uL (0.0-0.7); #Lymphocytes 0.3 thou/uL (1.20-3.40); #Monocytes 0.8 thou/uL (0.11-0.59); #Neutrophils 4.6 thou/uL (1.40-6.50); %Basophils 2.1 % (0.0-1.0); %Eosinophils 5.8 % (0.0-10.0); %Lymphocytes 5.2 % (21.0-51.0); %Monocytes 12.5 % (0.0-10.0); %Neutrophils 74.5 % (42.0-75.0); Hemoglobin 12.3 g/dL (12.0-16.0); Mean Corpuscular HGB CONC 29.9 g/dL (32.0-36.0); Mean Corpuscular Hemoglobin 31.7 pg (27.0-31.0); Mean Platelet Volume 10.8 fL (7.4-10.4); Platelet Count 69 thou/uL (130-400); RBC Distribution Width 15.9 % (11.5-14.5); Red Blood Cell (RBC) Count 3.89 mill/uL (4.20-5.40); White Blood Cell (WBC) Count 6.2 thou/uL (4.8-10.8)
[2021-11-21 20:00] LABS: Hypochromia SLIGHT = 6-15 cells (100X) (0-5/hpf); MDiff Complete? YES; Macrocytosis SLIGHT = 6-15 cells (100X) (0-5/hpf); Platelet Morphology Comment Appears Decreased; Polychromasia SLIGHT = 2-3 cells (100X) (0-2/hpf); Stomatocytes SLIGHT = 2-5 cells (100X) (0-1/hpf)
[2021-11-21] MEDS ORDERED: Aspirin 325 MG TAB ONE (20:02)
[2021-11-21] MEDS ORDERED: Acetaminophen 500 MG TAB ONE (20:03)
[2021-11-21 20:16] LABS: ALT (SGPT) 9 U/L (8-55); AST (SGOT) 15 U/L (5-34); Albumin 3.3 g/dL (3.4-4.8); Alkaline Phosphatase 125 U/L (40-110); Anion Gap 12 mmol/L (10-20); BUN (Urea Nitrogen) 14 mg/dL (9.8-20.1); Bilirubin, Total 0.3 mg/dL (0.2-1.2); Calc. Creatinine Clearance 0 mL/min (70-130); Carbon Dioxide 26 mmol/L (23-31); Chloride 106 mmol/L (98-107); Estimated GFR 27; Globulin 4.1 g/dL (2.4-3.5); Glucose 103 mg/dL (80-115); Lipase 8 U/L (8-78); Potassium 5.2 mmol/L (3.5-5.1); Protein, Total 7.4 g/dL (5.8-8.1); Sodium 139 mmol/L (136-145)
[2021-11-21 20:37] LABS: CKMB 1.4 ng/mL (0-6.6)
[2021-11-21 21:44] LABS: SARS-CoV-2 NAA Rapid Test DETECTED (NotDetected)
[2021-11-21] MEDS ORDERED: Furosemide 40 MG/4 ML VIAL ONE (22:28)
[2021-11-21] MEDS ORDERED: Furosemide 20 MG/2 ML VIAL ONE (22:28)
== END 2021-11-22 00:18 | disposition short-term general hospital (02) ==
LOC: ERS 18:57
DX: U07.1 COVID-19 (principal); I13.2 Hypertensive heart and chronic kidney disease with heart failure and with stage 5 chronic kidney disease, or end stage renal disease; E11.22 Type 2 diabetes mellitus with diabetic chronic kidney disease; N18.6 End stage renal disease; I50.9 Heart failure, unspecified; E66.9 Obesity, unspecified; D49.89 Neoplasm of unspecified behavior of other specified sites; Z68.45 Body mass index [BMI] 70 or greater, adult; Z79.82 Long term (current) use of aspirin; Z79.899 Other long term (current) drug therapy
CPT/HCPCS: 0240U; 71045; 80053; 82553; 83690; 83880; 84484; 85025; 86140; 93005; 96374; 99285; 36415; J1940

== ENCOUNTER 2021-12-15 19:15 | Inpatient (IN) | payer OTHER ==
[2021-12-15] MEDS ORDERED: Ondansetron PF 4 MG/2 ML Vial IVP PRN (21:40)
[2021-12-15] MEDS ORDERED: NOREPINEPHRINE 8 MG/250 ML-D5W 250 ML IVPB PRN (21:43)
[2021-12-15] MEDS ORDERED: Ventilator Sedation Protocol 1 EACH FS SCH (21:45)
[2021-12-15] MEDS ORDERED: Propofol 1,000 MG/100 ML VIAL IV PRN (22:00)
[2021-12-15] MEDS ORDERED: DISCONTINUE PREVIOUS NARCOTIC PAIN MEDICATIONS AND BENZODIAZEPINES FS SCH (22:00)
[2021-12-15] MEDS ORDERED: Propofol BOLUS 1,000 MG/100 ML VIAL IV PRN (22:00)
[2021-12-15] MEDS ORDERED: Fentanyl BOLUS 250 ML IVPB PRN (22:00)
[2021-12-15] MEDS ORDERED: Morphine 4 MG/ML VIAL SLOW IVP PRN (22:00)
[2021-12-15] MEDS ORDERED: Midazolam HCl 2 mg/2 ml Vial SLOW IVP PRN (22:00)
[2021-12-15] MEDS: Fentanyl CADD 100 ML IV SCH (22:16)
[2021-12-15 22:27] LABS: Actual Bicarbonate (HCO3a) 20.8 mEq/L (22-28); CO2 Tension 51.5 mmHg (35.0-45.0); Calcium, Ionized (arterial) 1.21 mmol/L (1.12-1.30); Carboxyhemoglobin (COHb) 1.3 gm% (0.0-3.0); Hemoglobin (Hb) 12.7 g/dL (12.0-16.0); O2 Tension (PaO2), arterial 127.5 mmHg (> 80.0); Potassium - ABG Lab 5.54 mmol/L (3.70-5.30)
[2021-12-15 22:30] LABS: Puncture Site LBA; pH, Arterial 7.23 (7.35-7.45)
[2021-12-15] MEDS ORDERED: Apixaban 2.5 MG TAB PO SCH (22:30)
[2021-12-15 22:31] LABS: ALV-art Gradient 521.125 mmHg (0-20)
[2021-12-15 22:31] LABS: Mean Corpuscular HGB CONC 30.3 g/dL (32.0-36.0); Mean Corpuscular Hemoglobin 30.9 pg (27.0-31.0); RBC Distribution Width 16.1 % (11.5-14.5); Red Blood Cell (RBC) Count 4.19 mill/uL (4.20-5.40); White Blood Cell (WBC) Count 13.8 thou/uL (4.8-10.8)
[2021-12-15 22:41] LABS: ALT (SGPT) 42 U/L (8-55); AST (SGOT) 33 U/L (5-34); Alkaline Phosphatase 123 U/L (40-110); Anion Gap 19 mmol/L (10-20); BUN (Urea Nitrogen) 90 mg/dL (9.8-20.1); Bilirubin, Total 0.5 mg/dL (0.2-1.2); Calc. Creatinine Clearance 0 mL/min (70-130); Calcium 9.2 mg/dL (7.8-10.44); Carbon Dioxide 17 mmol/L (23-31); Chloride 109 mmol/L (98-107); Estimated GFR 17; Globulin 3.8 g/dL (2.4-3.5); Glucose 105 mg/dL (80-115); Magnesium 2.1 mg/dL (1.6-2.6); Potassium 6.2 mmol/L (3.5-5.1); Protein, Total 6.8 g/dL (5.8-8.1); Sodium 139 mmol/L (136-145)
[2021-12-15 22:44] LABS: #Eosinphils 0.2 thou/uL (0.0-0.7); #Lymphocytes 0.8 thou/uL (1.20-3.40); #Monocytes 1.3 thou/uL (0.11-0.59); #Neutrophils 11.5 thou/uL (1.40-6.50); %Basophils 0.1 % (0.0-1.0); %Eosinophils 1.3 % (0.0-10.0); %Lymphocytes 5.5 % (21.0-51.0); %Monocytes 9.5 % (0.0-10.0); %Neutrophils 83.6 % (42.0-75.0); Large Platelets SLIGHT; MDiff Complete? YES; Mean Platelet Volume 11.5 fL (7.4-10.4); Platelet Count 84 thou/uL (130-400); Platelet Morphology Comment Appears Decreased
[2021-12-15 22:46] LABS: Lactic Acid 1.4 mmol/L (0.5-2.2)
[2021-12-15] MEDS ORDERED: Dextrose 50% Abboject 50 ML SYRINGE SLOW IVP PRN (23:08)
[2021-12-15] MEDS ORDERED: Sodium Bicarb 50 MEQ/50 ML Abboject 8.4% SYRINGE IVP SCH (23:15)
[2021-12-15] MEDS ORDERED: Calcium Gluc 4.6 MEQ/10 ML (100 MG/ML) SLOW IVP SCH (23:15)
[2021-12-15] MEDS ORDERED: Insulin Regular 300 UNITS/3 ML VIAL IVP SCH (23:15)
[2021-12-15] MEDS ORDERED: Piperacillin/Tazobactam 3.375 GM in Sodium Chloride 0.9% 100 ML IVPB SCH (23:30)
[2021-12-15] MEDS ORDERED: Furosemide 40 MG/4 ML VIAL SLOW IVP SCH (23:30)
[2021-12-15] MEDS ORDERED: Dextrose 50% Abboject 50 ML SYRINGE SLOW IVP SCH (23:30)
[2021-12-15 23:47] LABS: Actual Bicarbonate (HCO3a) 25.9 mEq/L (22-28); Base Excess (BEa) 0.3 mEq/L (-2.0 to +3.0); CO2 Tension 45.7 mmHg (35.0-45.0); Calcium, Ionized (arterial) 1.21 mmol/L (1.12-1.30); Carboxyhemoglobin (COHb) 0.8 gm% (0.0-3.0); Hemoglobin (Hb) 11.3 g/dL (12.0-16.0); O2 Tension (PaO2), arterial 84.8 mmHg (> 80.0); Potassium - ABG Lab 5.03 mmol/L (3.70-5.30); pH, Arterial 7.37 (7.35-7.45)
[2021-12-15 23:49] LABS: ALV-art Gradient 285.875 mmHg (0-20); Puncture Site LBA
[2021-12-16] MEDS ORDERED: Dextrose 5% in Water 1,000 ML IV PRN (03:53)
[2021-12-16] MEDS ORDERED: Dextrose 50% Abboject 50 ML SYRINGE SLOW IVP PRN (03:53)
[2021-12-16] MEDS ORDERED: HumaLOG 300 UNITS/3 ML VIAL SC PRN (03:53)
[2021-12-16] MEDS: Piperacillin/Tazobactam 3.375 GM in Sodium Chloride 0.9% 100 ML IVPB SCH ×2 (04:10→15:34)
[2021-12-16] MEDS ORDERED: methylPREDNISolone Sod Succ 40 MG VIAL IVP SCH (04:15)
[2021-12-16 04:54] LABS: #Eosinphils 0.1 thou/uL (0.0-0.7); #Lymphocytes 0.9 thou/uL (1.20-3.40); #Monocytes 1.2 thou/uL (0.11-0.59); #Neutrophils 8.4 thou/uL (1.40-6.50); %Basophils 0.2 % (0.0-1.0); %Monocytes 11.7 % (0.0-10.0); Hemoglobin 12.5 g/dL (12.0-16.0); Mean Corpuscular HGB CONC 30.1 g/dL (32.0-36.0); Mean Corpuscular Hemoglobin 31.1 pg (27.0-31.0); Platelet Count 72 thou/uL (130-400); Platelet Morphology Comment Appears Decreased; RBC Distribution Width 16.2 % (11.5-14.5); Red Blood Cell (RBC) Count 4.01 mill/uL (4.20-5.40); White Blood Cell (WBC) Count 10.6 thou/uL (4.8-10.8)
[2021-12-16 06:26] LABS: Albumin 2.9 g/dL (3.4-4.8)
[2021-12-16 06:28] LABS: Calcium 9.5 mg/dL (7.8-10.44); Chloride 108 mmol/L (98-107); Potassium 5.2 mmol/L (3.5-5.1); Sodium 143 mmol/L (136-145)
[2021-12-16 06:29] LABS: Globulin 3.3 g/dL (2.4-3.5); Glucose 101 mg/dL (80-115); Protein, Total 6.2 g/dL (5.8-8.1)
[2021-12-16 06:30] LABS: Anion Gap 18 mmol/L (10-20); Carbon Dioxide 22 mmol/L (23-31)
[2021-12-16 06:31] LABS: Bilirubin, Total 0.8 mg/dL (0.2-1.2)
[2021-12-16 06:32] LABS: Alkaline Phosphatase 114 U/L (40-110); Calc. Creatinine Clearance 46 mL/min (70-130); Estimated GFR 17
[2021-12-16 06:33] LABS: BUN (Urea Nitrogen) 95 mg/dL (9.8-20.1)
[2021-12-16 06:34] LABS: AST (SGOT) 22 U/L (5-34)
[2021-12-16 06:35] LABS: ALT (SGPT) 37 U/L (8-55)
[2021-12-16 09:26] LABS: Complement-C4 24.7 mg/dL (15-57)
[2021-12-16] MEDS: Apixaban 2.5 MG TAB PO SCH ×2 (09:57→19:35)
[2021-12-16] MEDS: Lansoprazole 3 MG/ML ORAL SUSPENSION PER TUBE SCH (09:57)
[2021-12-16 10:52] LABS: Bacteria/HPF 4+ HPF (None Seen); Bilirubin Negative (Negative); Blood, Urine 1+ (Negative); Clarity Turbid (Clear); Glucose, Urine (Dipstick) Normal (Negative); Ketone, Urine Negative (Negative); Leukocyte Negative Leu/uL (Negative); Nitrite Negative (Negative); Protein, Urine (Dipstick) 100 mg/dL (Neg-Trace); RBC/HPF 0-3 HPF (0-3); Specific Gravity, Urine 1.016 (1.002-1.036); Squamous Epithelial 0-3 HPF (0-3); Urobilinogen Normal mg/dL (Less than 2); pH, Urine 5.5 (5.0-9.0)
[2021-12-16 10:54] LABS: Urine Culture Reflex Yes Yes
[2021-12-16] MEDS ORDERED: Acetylcysteine 20% 200 MG/ML 30 ML VIAL ONE ×2 (10:54→11:13)
[2021-12-16] MEDS ORDERED: Sodium Bicarbonate 75 MEQ in Sodium Chloride 0.45% 1,000 ML IV SCH (11:00)
[2021-12-16 11:08] LABS: Sodium, Urine 28 mmol/L (Not Available); Urea Nitrogen, Random Urine 633 mg/dl
[2021-12-16 11:22] LABS: Protein, Urine Random Quant 195 mg/dL (1-14)
[2021-12-16] MEDS ORDERED: Furosemide 40 MG/4 ML VIAL SLOW IVP SCH (14:00)
[2021-12-16 14:43] LABS: Anion Gap 20 mmol/L (10-20); BUN (Urea Nitrogen) 99 mg/dL (9.8-20.1); Calc. Creatinine Clearance 44 mL/min (70-130); Calcium 9.2 mg/dL (7.8-10.44); Carbon Dioxide 21 mmol/L (23-31); Chloride 106 mmol/L (98-107); Estimated GFR 16; Glucose 135 mg/dL (80-115); Potassium 5.3 mmol/L (3.5-5.1); Sodium 142 mmol/L (136-145)
[2021-12-16] MEDS: methylPREDNISolone Sod Succ 40 MG VIAL IVP SCH (15:34)
[2021-12-16] MEDS ORDERED: LOKELMA 10 GM PACKET PO SCH (18:45)
[2021-12-16] MEDS: Fentanyl CADD 100 ML IV SCH (20:46)
[2021-12-17] MEDS: methylPREDNISolone Sod Succ 40 MG VIAL IVP SCH (03:58)
[2021-12-17] MEDS: Piperacillin/Tazobactam 3.375 GM in Sodium Chloride 0.9% 100 ML IVPB SCH ×2 (03:59→15:34)
[2021-12-17 04:45] LABS: ALT (SGPT) 27 U/L (8-55); AST (SGOT) 11 U/L (5-34); Albumin 2.6 g/dL (3.4-4.8); Alkaline Phosphatase 99 U/L (40-110); Anion Gap 20 mmol/L (10-20); BUN (Urea Nitrogen) 102 mg/dL (9.8-20.1); Bilirubin, Total 0.5 mg/dL (0.2-1.2); Calc. Creatinine Clearance 40 mL/min (70-130); Calcium 8.8 mg/dL (7.8-10.44); Carbon Dioxide 23 mmol/L (23-31); Chloride 107 mmol/L (98-107); Estimated GFR 14; Globulin 3.3 g/dL (2.4-3.5); Glucose 143 mg/dL (80-115); Potassium 5.2 mmol/L (3.5-5.1); Protein, Total 5.9 g/dL (5.8-8.1); Sodium 145 mmol/L (136-145)
[2021-12-17 05:34] LABS: #Lymphocytes 0.6 thou/uL (1.20-3.40); #Monocytes 0.6 thou/uL (0.11-0.59); #Neutrophils 8.5 thou/uL (1.40-6.50); %Eosinophils 0.1 % (0.0-10.0); %Monocytes 6.6 % (0.0-10.0); %Neutrophils 87.3 % (42.0-75.0); Hemoglobin 10.7 g/dL (12.0-16.0); Mean Corpuscular HGB CONC 30.9 g/dL (32.0-36.0); Mean Corpuscular Hemoglobin 30.5 pg (27.0-31.0); Mean Corpuscular Volume 98.8 fL (78.0-98.0); Mean Platelet Volume 11.4 fL (7.4-10.4); Platelet Count 83 thou/uL (130-400); RBC Distribution Width 15.7 % (11.5-14.5); Red Blood Cell (RBC) Count 3.49 mill/uL (4.20-5.40); White Blood Cell (WBC) Count 9.7 thou/uL (4.8-10.8)
[2021-12-17] MEDS: Albumin 25% 25 GM/100 ML BOT IVPB SCH ×4 (07:07→23:23)
[2021-12-17] MEDS ORDERED: Sodium Bicarbonate 75 MEQ in Sodium Chloride 0.45% 1,000 ML IV SCH (09:00)
[2021-12-17] MEDS ORDERED: LOKELMA 5 GM PACKET PO SCH (09:00)
[2021-12-17] MEDS ORDERED: LOKELMA 10 GM PACKET PO SCH (09:30)
[2021-12-17] MEDS: Apixaban 2.5 MG TAB PO SCH ×2 (09:31→20:32)
[2021-12-17] MEDS: Lansoprazole 3 MG/ML ORAL SUSPENSION PER TUBE SCH (09:32)
[2021-12-17] MEDS: HumaLOG 300 UNITS/3 ML VIAL SC PRN (10:27)
[2021-12-17 10:46] LABS: Base Excess (BEa) -7.7 mEq/L (-2.0 to +3.0); CO2 Tension 43.7 mmHg (35.0-45.0); Calcium, Ionized (arterial) 1.17 mmol/L (1.12-1.30); Carboxyhemoglobin (COHb) 0.9 gm% (0.0-3.0); Hemoglobin (Hb) 11.9 g/dL (12.0-16.0); O2 Tension (PaO2), arterial 72.3 mmHg (> 80.0); Potassium - ABG Lab 4.85 mmol/L (3.70-5.30); pH, Arterial 7.26 (7.35-7.45)
[2021-12-17 10:51] LABS: ALV-art Gradient 158.275 mmHg (0-20); Puncture Site RRA
[2021-12-17] MEDS ORDERED: Fentanyl CADD 100 ML ONE (12:27)
[2021-12-18] MEDS: Piperacillin/Tazobactam 3.375 GM in Sodium Chloride 0.9% 100 ML IVPB SCH ×3 (03:42→20:02)
[2021-12-18 04:22] LABS: #Eosinphils 0.1 thou/uL (0.0-0.7); #Lymphocytes 0.6 thou/uL (1.20-3.40); #Monocytes 0.8 thou/uL (0.11-0.59); #Neutrophils 6.1 thou/uL (1.40-6.50); %Basophils 0.2 % (0.0-1.0); %Eosinophils 0.8 % (0.0-10.0); %Lymphocytes 8.5 % (21.0-51.0); %Monocytes 10.2 % (0.0-10.0); %Neutrophils 80.3 % (42.0-75.0); Hemoglobin 8.7 g/dL (12.0-16.0); Mean Corpuscular HGB CONC 32.8 g/dL (32.0-36.0); Mean Corpuscular Hemoglobin 31.3 pg (27.0-31.0); Mean Corpuscular Volume 95.5 fL (78.0-98.0); Mean Platelet Volume 11.2 fL (7.4-10.4); Platelet Count 69 thou/uL (130-400); RBC Distribution Width 15.8 % (11.5-14.5); Red Blood Cell (RBC) Count 2.77 mill/uL (4.20-5.40); White Blood Cell (WBC) Count 7.6 thou/uL (4.8-10.8)
[2021-12-18 04:31] LABS: ALT (SGPT) 17 U/L (8-55); AST (SGOT) 9 U/L (5-34); Albumin 3.4 g/dL (3.4-4.8); Alkaline Phosphatase 74 U/L (40-110); Anion Gap 20 mmol/L (10-20); BUN (Urea Nitrogen) 105 mg/dL (9.8-20.1); Bilirubin, Total 0.7 mg/dL (0.2-1.2); Calc. Creatinine Clearance 42 mL/min (70-130); Calcium 8.8 mg/dL (7.8-10.44); Carbon Dioxide 24 mmol/L (23-31); Chloride 108 mmol/L (98-107); Estimated GFR 14; Globulin 2.7 g/dL (2.4-3.5); Glucose 105 mg/dL (80-115); Potassium 4.6 mmol/L (3.5-5.1); Protein, Total 6.1 g/dL (5.8-8.1); Sodium 147 mmol/L (136-145)
[2021-12-18] MEDS ORDERED: Fentanyl CADD 100 ML ONE (04:58)
[2021-12-18] MEDS: Fentanyl CADD 100 ML IV SCH (05:03)
[2021-12-18 07:45] LABS: Base Excess (BEa) -0.8 mEq/L (-2.0 to +3.0); CO2 Tension 34.6 mmHg (35.0-45.0); Carboxyhemoglobin (COHb) 0.7 gm% (0.0-3.0); O2 Tension (PaO2), arterial 83.9 mmHg (> 80.0); pH, Arterial 7.44 (7.35-7.45)
[2021-12-18 07:46] LABS: Puncture Site RRA
[2021-12-18] MEDS ORDERED: Racepinephrine 2.25% 0.5 ML NEB ONE (09:57)
[2021-12-18] MEDS: methylPREDNISolone Sod Succ 40 MG VIAL IVP SCH (10:02)
[2021-12-18] MEDS: Apixaban 2.5 MG TAB PO SCH (10:05)
[2021-12-18] MEDS: Epoetin (ESRD) 10,000 UNITS/ML VIAL SC SCH (10:05)
[2021-12-18] MEDS: Lansoprazole 3 MG/ML ORAL SUSPENSION PER TUBE SCH (11:27)
[2021-12-18 14:41] LABS: Actual Bicarbonate (HCO3a) 27.2 mEq/L (22-28); Analyzer IN Cardio ER; Base Excess (BEa) -2.2 mEq/L (-2.0 to +3.0); Calcium, Ionized (arterial) 1.12 mmol/L (1.12-1.30); Carboxyhemoglobin (COHb) 0.7 gm% (0.0-3.0); Hemoglobin (Hb) 12.6 g/dL (12.0-16.0); O2 Tension (PaO2), arterial 83.9 mmHg (> 80.0); Potassium - ABG Lab 4.84 mmol/L (3.70-5.30)
[2021-12-18 14:46] LABS: ALV-art Gradient 76.775 mmHg (0-20); CO2 Tension 71.1 mmHg (35.0-45.0); Puncture Site RRA
[2021-12-18] MEDS ORDERED: Lactated Ringer's 1,000 ML IV SCH (16:15)
[2021-12-19] MEDS: Piperacillin/Tazobactam 3.375 GM in Sodium Chloride 0.9% 100 ML IVPB SCH ×3 (04:13→20:18)
[2021-12-19 04:23] LABS: #Eosinphils 0.1 thou/uL (0.0-0.7); #Lymphocytes 0.8 thou/uL (1.20-3.40); #Monocytes 0.7 thou/uL (0.11-0.59); #Neutrophils 5.7 thou/uL (1.40-6.50); %Eosinophils 0.9 % (0.0-10.0); %Lymphocytes 10.3 % (21.0-51.0); %Neutrophils 78.8 % (42.0-75.0); Hemoglobin 9.8 g/dL (12.0-16.0); Mean Corpuscular HGB CONC 31.8 g/dL (32.0-36.0); Mean Corpuscular Hemoglobin 31.2 pg (27.0-31.0); Mean Corpuscular Volume 98.2 fL (78.0-98.0); Mean Platelet Volume 10.6 fL (7.4-10.4); Platelet Count 74 thou/uL (130-400); Red Blood Cell (RBC) Count 3.14 mill/uL (4.20-5.40); White Blood Cell (WBC) Count 7.3 thou/uL (4.8-10.8)
[2021-12-19 04:31] LABS: Anion Gap 18 mmol/L (10-20); BUN (Urea Nitrogen) 102 mg/dL (9.8-20.1); Calc. Creatinine Clearance 43 mL/min (70-130); Calcium 9.1 mg/dL (7.8-10.44); Carbon Dioxide 25 mmol/L (23-31); Chloride 109 mmol/L (98-107); Estimated GFR 15; Glucose 111 mg/dL (80-115); Potassium 4.9 mmol/L (3.5-5.1); Sodium 147 mmol/L (136-145)
[2021-12-19 06:58] LABS: Actual Bicarbonate (HCO3a) 25.3 mEq/L (22-28); Base Excess (BEa) 0.5 mEq/L (-2.0 to +3.0); CO2 Tension 41.5 mmHg (35.0-45.0); Calcium, Ionized (arterial) 1.14 mmol/L (1.12-1.30); Carboxyhemoglobin (COHb) 0.4 gm% (0.0-3.0); Hemoglobin (Hb) 9.6 g/dL (12.0-16.0); O2 Tension (PaO2), arterial 105.7 mmHg (> 80.0); Potassium - ABG Lab 4.54 mmol/L (3.70-5.30)
[2021-12-19 06:59] LABS: ALV-art Gradient 91.975 mmHg (0-20); Puncture Site RRA
[2021-12-19] MEDS: methylPREDNISolone Sod Succ 40 MG VIAL IVP SCH (09:03)
[2021-12-19] MEDS: Apixaban 2.5 MG TAB PO SCH ×2 (09:03→20:15)
[2021-12-19] MEDS: Lansoprazole 3 MG/ML ORAL SUSPENSION PER TUBE SCH (09:03)
[2021-12-19] MEDS: Lactated Ringer's 1,000 ML IV SCH (13:10)
[2021-12-19] MEDS: Acetaminophen 325 MG TAB PO PRN (20:15)
[2021-12-20] MEDS: Lactated Ringer's 1,000 ML IV SCH ×2 (00:03→17:39)
[2021-12-20] MEDS: Piperacillin/Tazobactam 3.375 GM in Sodium Chloride 0.9% 100 ML IVPB SCH ×3 (02:53→20:20)
[2021-12-20 05:42] LABS: Anion Gap 18 mmol/L (10-20); BUN (Urea Nitrogen) 93 mg/dL (9.8-20.1); Calc. Creatinine Clearance 49 mL/min (70-130); Calcium 9.3 mg/dL (7.8-10.44); Carbon Dioxide 25 mmol/L (23-31); Chloride 112 mmol/L (98-107); Estimated GFR 17; Glucose 83 mg/dL (80-115); Potassium 4.9 mmol/L (3.5-5.1); Sodium 150 mmol/L (136-145)
[2021-12-20 07:09] LABS: Band 9 % (5-11); Hemoglobin 10.5 g/dL (12.0-16.0); Lymphocytes 6 % (21-51); MDiff Complete? YES; Mean Corpuscular HGB CONC 31.3 g/dL (32.0-36.0); Mean Corpuscular Hemoglobin 31.2 pg (27.0-31.0); Mean Corpuscular Volume 99.6 fL (78.0-98.0); Mean Platelet Volume 10.7 fL (7.4-10.4); Metamyelocyte 1 % (0-0); Monocytes 13 % (0-10); Neutrophil 71 % (42-75); Nucleated RBC 2 % (0); Platelet Count 70 thou/uL (130-400); Platelet Morphology Comment Appears Decreased; RBC Distribution Width 16.2 % (11.5-14.5); Red Blood Cell (RBC) Count 3.37 mill/uL (4.20-5.40); White Blood Cell (WBC) Count 7.2 thou/uL (4.8-10.8)
[2021-12-20] MEDS ORDERED: Lactated Ringer's 1,000 ML IV SCH (08:17)
[2021-12-20] MEDS: methylPREDNISolone Sod Succ 40 MG VIAL IVP SCH (09:12)
[2021-12-20] MEDS: Apixaban 2.5 MG TAB PO SCH ×2 (09:12→20:20)
[2021-12-20] MEDS: Lansoprazole 3 MG/ML ORAL SUSPENSION PER TUBE SCH (10:02)
[2021-12-20] MEDS: HumaLOG 300 UNITS/3 ML VIAL SC PRN (11:13)
[2021-12-21] MEDS: Piperacillin/Tazobactam 3.375 GM in Sodium Chloride 0.9% 100 ML IVPB SCH ×3 (04:24→21:08)
[2021-12-21 04:43] LABS: Anion Gap 15 mmol/L (10-20); BUN (Urea Nitrogen) 80 mg/dL (9.8-20.1); Calc. Creatinine Clearance 58 mL/min (70-130); Calcium 8.8 mg/dL (7.8-10.44); Carbon Dioxide 28 mmol/L (23-31); Chloride 107 mmol/L (98-107); Estimated GFR 21; Glucose 90 mg/dL (80-115); Potassium 3.9 mmol/L (3.5-5.1); Sodium 146 mmol/L (136-145)
[2021-12-21 05:44] LABS: #Eosinphils 0.1 thou/uL (0.0-0.7); #Lymphocytes 0.8 thou/uL (1.20-3.40); #Monocytes 0.5 thou/uL (0.11-0.59); #Neutrophils 6.2 thou/uL (1.40-6.50); %Basophils 0.2 % (0.0-1.0); %Eosinophils 1.3 % (0.0-10.0); %Lymphocytes 10.2 % (21.0-51.0); %Neutrophils 81.3 % (42.0-75.0)
[2021-12-21 05:45] LABS: Hemoglobin 10.1 g/dL (12.0-16.0); Mean Corpuscular Hemoglobin 31.2 pg (27.0-31.0); Mean Platelet Volume 10.3 fL (7.4-10.4); Platelet Count 72 thou/uL (130-400); RBC Distribution Width 16.5 % (11.5-14.5); Red Blood Cell (RBC) Count 3.23 mill/uL (4.20-5.40); White Blood Cell (WBC) Count 7.6 thou/uL (4.8-10.8)
[2021-12-21] MEDS: Acetaminophen 325 MG TAB PO PRN (06:02)
[2021-12-21] MEDS ORDERED: Metoprolol Tartrate 25 MG TAB PO SCH ×3 (10:00→21:00)
[2021-12-21] MEDS: Folic Acid 1 MG TAB PO SCH (10:01)
[2021-12-21] MEDS: methylPREDNISolone Sod Succ 40 MG VIAL IVP SCH (10:01)
[2021-12-21] MEDS: Lansoprazole 3 MG/ML ORAL SUSPENSION PER TUBE SCH (10:01)
[2021-12-21] MEDS: Polyethylene Glycol 3350 17 GM Packet PO SCH (10:02)
[2021-12-21] MEDS: Apixaban 2.5 MG TAB PO SCH ×2 (10:31→21:11)
[2021-12-21] MEDS: Cyanocobalamin (Vitamin B-12) 1,000 MCG TAB PO SCH (10:31)
[2021-12-21] MEDS: Metoprolol Tartrate 50 MG TAB PO SCH (21:11)
[2021-12-22] MEDS: Piperacillin/Tazobactam 3.375 GM in Sodium Chloride 0.9% 100 ML IVPB SCH ×3 (04:03→20:48)
[2021-12-22 05:14] LABS: #Eosinphils 0.1 thou/uL (0.0-0.7); #Monocytes 0.6 thou/uL (0.11-0.59); #Neutrophils 7.5 thou/uL (1.40-6.50); %Basophils 0.1 % (0.0-1.0); %Eosinophils 1.6 % (0.0-10.0); %Lymphocytes 10.7 % (21.0-51.0); %Monocytes 6.3 % (0.0-10.0); %Neutrophils 81.3 % (42.0-75.0); Hemoglobin 10.2 g/dL (12.0-16.0); Mean Corpuscular HGB CONC 30.6 g/dL (32.0-36.0); Mean Corpuscular Hemoglobin 30.6 pg (27.0-31.0); Mean Platelet Volume 11.1 fL (7.4-10.4); Platelet Count 83 thou/uL (130-400); RBC Distribution Width 16.4 % (11.5-14.5); Red Blood Cell (RBC) Count 3.32 mill/uL (4.20-5.40); White Blood Cell (WBC) Count 9.2 thou/uL (4.8-10.8)
[2021-12-22 05:17] LABS: Anion Gap 15 mmol/L (10-20); BUN (Urea Nitrogen) 78 mg/dL (9.8-20.1); Calc. Creatinine Clearance 62 mL/min (70-130); Calcium 8.9 mg/dL (7.8-10.44); Carbon Dioxide 27 mmol/L (23-31); Chloride 107 mmol/L (98-107); Estimated GFR 23; Glucose 90 mg/dL (80-115); Potassium 3.9 mmol/L (3.5-5.1); Sodium 145 mmol/L (136-145)
[2021-12-22] MEDS: Metoprolol Tartrate 50 MG TAB PO SCH ×2 (09:33→20:48)
[2021-12-22] MEDS: Cyanocobalamin (Vitamin B-12) 1,000 MCG TAB PO SCH (09:33)
[2021-12-22] MEDS: Polyethylene Glycol 3350 17 GM Packet PO SCH (09:33)
[2021-12-22] MEDS: methylPREDNISolone Sod Succ 40 MG VIAL IVP SCH (09:33)
[2021-12-22] MEDS: Apixaban 2.5 MG TAB PO SCH ×2 (09:33→20:48)
[2021-12-22] MEDS: Folic Acid 1 MG TAB PO SCH (09:33)
[2021-12-22] MEDS: Lansoprazole 3 MG/ML ORAL SUSPENSION PER TUBE SCH (11:13)
[2021-12-22] MEDS ORDERED: Benzonatate 100 MG CAP PO SCH (12:45)
[2021-12-22] MEDS: Atorvastatin Calcium 20 MG TAB PO SCH (20:48)
[2021-12-22] MEDS ORDERED: Calcitriol 0.25 MCG CAP PO SCH (21:00)
[2021-12-23] MEDS: Piperacillin/Tazobactam 3.375 GM in Sodium Chloride 0.9% 100 ML IVPB SCH (03:43)
[2021-12-23 04:41] LABS: #Eosinphils 0.1 thou/uL (0.0-0.7); #Lymphocytes 1.3 thou/uL (1.20-3.40); #Monocytes 0.7 thou/uL (0.11-0.59); #Neutrophils 7.5 thou/uL (1.40-6.50); %Basophils 0.1 % (0.0-1.0); %Eosinophils 1.3 % (0.0-10.0); %Lymphocytes 13.6 % (21.0-51.0); %Monocytes 7.2 % (0.0-10.0); %Neutrophils 77.7 % (42.0-75.0); Hemoglobin 10.3 g/dL (12.0-16.0); Mean Corpuscular HGB CONC 31.2 g/dL (32.0-36.0); Mean Corpuscular Volume 99.6 fL (78.0-98.0); Mean Platelet Volume 10.8 fL (7.4-10.4); Platelet Count 81 thou/uL (130-400); RBC Distribution Width 16.5 % (11.5-14.5); Red Blood Cell (RBC) Count 3.32 mill/uL (4.20-5.40); White Blood Cell (WBC) Count 9.7 thou/uL (4.8-10.8)
[2021-12-23 04:54] LABS: Anion Gap 13 mmol/L (10-20); BUN (Urea Nitrogen) 69 mg/dL (9.8-20.1); Calc. Creatinine Clearance 65 mL/min (70-130); Carbon Dioxide 29 mmol/L (23-31); Chloride 107 mmol/L (98-107); Estimated GFR 25; Glucose 94 mg/dL (80-115); Potassium 3.6 mmol/L (3.5-5.1); Sodium 145 mmol/L (136-145)
[2021-12-23] MEDS: Alogliptin 6.25 MG TAB PO SCH (08:52)
[2021-12-23] MEDS: Cyanocobalamin (Vitamin B-12) 1,000 MCG TAB PO SCH (08:52)
[2021-12-23] MEDS: Cholecalciferol 1,000 UNITS (25 MCG) TAB PO SCH (08:52)
[2021-12-23] MEDS: Metoprolol Tartrate 50 MG TAB PO SCH ×2 (08:52→21:08)
[2021-12-23] MEDS: Apixaban 2.5 MG TAB PO SCH ×2 (08:52→21:08)
[2021-12-23] MEDS: Folic Acid 1 MG TAB PO SCH (08:52)
[2021-12-23] MEDS: rOPINIRole HCl 1 MG TAB PO SCH (08:53)
[2021-12-23] MEDS: Atorvastatin Calcium 20 MG TAB PO SCH (21:08)
[2021-12-23] MEDS: Cefdinir 300 MG CAP PO SCH (21:09)
[2021-12-23] MEDS: Acetaminophen 500 MG TAB PO PRN (23:46)
[2021-12-24 04:41] LABS: Anion Gap 12 mmol/L (10-20); BUN (Urea Nitrogen) 62 mg/dL (9.8-20.1); Calc. Creatinine Clearance 66 mL/min (70-130); Calcium 8.8 mg/dL (7.8-10.44); Carbon Dioxide 28 mmol/L (23-31); Chloride 108 mmol/L (98-107); Estimated GFR 25; Glucose 84 mg/dL (80-115); Potassium 3.4 mmol/L (3.5-5.1); Sodium 145 mmol/L (136-145)
[2021-12-24 05:24] LABS: Band 7 % (5-11); Eosinophils 5 % (0-10); Hemoglobin 10.2 g/dL (12.0-16.0); Lymphocytes 11 % (21-51); MDiff Complete? YES; Mean Corpuscular HGB CONC 30.7 g/dL (32.0-36.0); Mean Corpuscular Hemoglobin 30.8 pg (27.0-31.0); Mean Platelet Volume 10.6 fL (7.4-10.4); Monocytes 5 % (0-10); Neutrophil 72 % (42-75); Platelet Count 81 thou/uL (130-400); Platelet Morphology Comment Appears Decreased; RBC Distribution Width 16.2 % (11.5-14.5); Red Blood Cell (RBC) Count 3.32 mill/uL (4.20-5.40)
[2021-12-24] MEDS: Loperamide HCl 2 MG CAP PO PRN ×3 (09:18→20:10)
[2021-12-24] MEDS: Cefdinir 300 MG CAP PO SCH ×2 (09:18→20:10)
[2021-12-24] MEDS: Apixaban 2.5 MG TAB PO SCH ×2 (09:18→20:10)
[2021-12-24] MEDS: Alogliptin 6.25 MG TAB PO SCH (09:18)
[2021-12-24] MEDS: Folic Acid 1 MG TAB PO SCH (09:19)
[2021-12-24] MEDS: Cholecalciferol 1,000 UNITS (25 MCG) TAB PO SCH (09:19)
[2021-12-24] MEDS: Cyanocobalamin (Vitamin B-12) 1,000 MCG TAB PO SCH (09:19)
[2021-12-24] MEDS: rOPINIRole HCl 1 MG TAB PO SCH (09:19)
[2021-12-24] MEDS: Metoprolol Tartrate 50 MG TAB PO SCH ×2 (09:19→20:10)
[2021-12-24] MEDS: Atorvastatin Calcium 20 MG TAB PO SCH (20:10)
[2021-12-25 04:46] LABS: #Eosinphils 0.2 thou/uL (0.0-0.7); #Lymphocytes 0.9 thou/uL (1.20-3.40); #Monocytes 0.6 thou/uL (0.11-0.59); #Neutrophils 5.2 thou/uL (1.40-6.50); %Basophils 0.3 % (0.0-1.0); %Eosinophils 2.8 % (0.0-10.0); %Lymphocytes 12.8 % (21.0-51.0); %Monocytes 8.7 % (0.0-10.0); %Neutrophils 75.5 % (42.0-75.0); Hemoglobin 10.3 g/dL (12.0-16.0); Mean Corpuscular HGB CONC 32.8 g/dL (32.0-36.0); Mean Corpuscular Hemoglobin 33.1 pg (27.0-31.0); Mean Platelet Volume 10.3 fL (7.4-10.4); Platelet Count 81 thou/uL (130-400); RBC Distribution Width 16.9 % (11.5-14.5); Red Blood Cell (RBC) Count 3.11 mill/uL (4.20-5.40); White Blood Cell (WBC) Count 6.9 thou/uL (4.8-10.8)
[2021-12-25 04:52] LABS: Anion Gap 12 mmol/L (10-20); BUN (Urea Nitrogen) 54 mg/dL (9.8-20.1); Calc. Creatinine Clearance 73 mL/min (70-130); Calcium 8.7 mg/dL (7.8-10.44); Carbon Dioxide 28 mmol/L (23-31); Chloride 109 mmol/L (98-107); Estimated GFR 28; Glucose 76 mg/dL (80-115); Potassium 3.3 mmol/L (3.5-5.1); Sodium 146 mmol/L (136-145)
[2021-12-25] MEDS ORDERED: Potassium Chloride 20 MEQ TAB PO SCH (07:15)
[2021-12-25 08:14] LABS: Magnesium 1.7 mg/dL (1.6-2.6); Phosphorus 3.9 mg/dL (2.3-4.7)
[2021-12-25] MEDS: Alogliptin 6.25 MG TAB PO SCH (11:05)
[2021-12-25] MEDS: Apixaban 2.5 MG TAB PO SCH ×2 (11:06→20:23)
[2021-12-25] MEDS: Cefdinir 300 MG CAP PO SCH ×2 (11:06→20:23)
[2021-12-25] MEDS: rOPINIRole HCl 1 MG TAB PO SCH (11:07)
[2021-12-25] MEDS: Cyanocobalamin (Vitamin B-12) 1,000 MCG TAB PO SCH (11:07)
[2021-12-25] MEDS: Folic Acid 1 MG TAB PO SCH (11:07)
[2021-12-25] MEDS: Metoprolol Tartrate 50 MG TAB PO SCH ×2 (11:07→20:23)
[2021-12-25] MEDS: Cholecalciferol 1,000 UNITS (25 MCG) TAB PO SCH (11:07)
[2021-12-25] MEDS: Acetaminophen 500 MG TAB PO PRN ×2 (11:09→20:27)
[2021-12-25] MEDS: Loperamide HCl 2 MG CAP PO PRN ×2 (11:09→20:27)
[2021-12-25] MEDS: Epoetin (ESRD) 10,000 UNITS/ML VIAL SC SCH (14:02)
[2021-12-25] MEDS: Atorvastatin Calcium 20 MG TAB PO SCH (20:23)
[2021-12-26 04:28] LABS: #Eosinphils 0.1 thou/uL (0.0-0.7); #Lymphocytes 0.9 thou/uL (1.20-3.40); #Monocytes 0.7 thou/uL (0.11-0.59); #Neutrophils 4.2 thou/uL (1.40-6.50); %Basophils 0.6 % (0.0-1.0); %Lymphocytes 15.6 % (21.0-51.0); %Monocytes 11.1 % (0.0-10.0); %Neutrophils 70.6 % (42.0-75.0); Hemoglobin 9.6 g/dL (12.0-16.0); Mean Corpuscular HGB CONC 30.4 g/dL (32.0-36.0); Mean Corpuscular Hemoglobin 30.7 pg (27.0-31.0); Mean Platelet Volume 10.7 fL (7.4-10.4); Platelet Count 88 thou/uL (130-400); RBC Distribution Width 16.6 % (11.5-14.5); Red Blood Cell (RBC) Count 3.14 mill/uL (4.20-5.40); White Blood Cell (WBC) Count 5.9 thou/uL (4.8-10.8)
[2021-12-26 04:32] LABS: Anion Gap 11 mmol/L (10-20); BUN (Urea Nitrogen) 48 mg/dL (9.8-20.1); Calc. Creatinine Clearance 78 mL/min (70-130); Calcium 8.7 mg/dL (7.8-10.44); Carbon Dioxide 29 mmol/L (23-31); Chloride 106 mmol/L (98-107); Estimated GFR 31; Glucose 84 mg/dL (80-115); Potassium 3.6 mmol/L (3.5-5.1); Sodium 142 mmol/L (136-145)
[2021-12-26] MEDS: Cefdinir 300 MG CAP PO SCH ×2 (08:05→20:52)
[2021-12-26] MEDS: Alogliptin 6.25 MG TAB PO SCH (08:05)
[2021-12-26] MEDS: Cholecalciferol 1,000 UNITS (25 MCG) TAB PO SCH (08:05)
[2021-12-26] MEDS: Metoprolol Tartrate 50 MG TAB PO SCH ×2 (08:05→20:52)
[2021-12-26] MEDS: Cyanocobalamin (Vitamin B-12) 1,000 MCG TAB PO SCH (08:05)
[2021-12-26] MEDS: rOPINIRole HCl 1 MG TAB PO SCH (08:05)
[2021-12-26] MEDS: Folic Acid 1 MG TAB PO SCH (08:05)
[2021-12-26] MEDS: Apixaban 2.5 MG TAB PO SCH ×2 (08:05→20:52)
[2021-12-26] MEDS: Atorvastatin Calcium 20 MG TAB PO SCH (20:52)
[2021-12-26] MEDS: Acetaminophen 500 MG TAB PO PRN (20:52)
[2021-12-27 05:27] LABS: #Eosinphils 0.1 thou/uL (0.0-0.7); #Monocytes 0.7 thou/uL (0.11-0.59); #Neutrophils 3.7 thou/uL (1.40-6.50); %Basophils 0.7 % (0.0-1.0); %Eosinophils 1.9 % (0.0-10.0); %Lymphocytes 17.5 % (21.0-51.0); %Monocytes 12.8 % (0.0-10.0); Hemoglobin 9.9 g/dL (12.0-16.0); Mean Corpuscular HGB CONC 31.2 g/dL (32.0-36.0); Mean Corpuscular Hemoglobin 31.4 pg (27.0-31.0); Mean Platelet Volume 10.1 fL (7.4-10.4); Platelet Count 104 thou/uL (130-400); RBC Distribution Width 16.6 % (11.5-14.5); Red Blood Cell (RBC) Count 3.14 mill/uL (4.20-5.40); White Blood Cell (WBC) Count 5.6 thou/uL (4.8-10.8)
[2021-12-27 05:54] LABS: Anion Gap 13 mmol/L (10-20); BUN (Urea Nitrogen) 37 mg/dL (9.8-20.1); Calc. Creatinine Clearance 84 mL/min (70-130); Calcium 8.8 mg/dL (7.8-10.44); Carbon Dioxide 28 mmol/L (23-31); Chloride 106 mmol/L (98-107); Estimated GFR 34; Glucose 86 mg/dL (80-115); Potassium 3.5 mmol/L (3.5-5.1); Sodium 143 mmol/L (136-145)
[2021-12-27] MEDS: Alogliptin 6.25 MG TAB PO SCH (08:13)
[2021-12-27] MEDS: Cholecalciferol 1,000 UNITS (25 MCG) TAB PO SCH (08:13)
[2021-12-27] MEDS: Folic Acid 1 MG TAB PO SCH (08:13)
[2021-12-27] MEDS: Cefdinir 300 MG CAP PO SCH (08:13)
[2021-12-27] MEDS: Cyanocobalamin (Vitamin B-12) 1,000 MCG TAB PO SCH (08:13)
[2021-12-27] MEDS: Metoprolol Tartrate 50 MG TAB PO SCH ×2 (08:13→20:26)
[2021-12-27] MEDS: rOPINIRole HCl 1 MG TAB PO SCH (08:13)
[2021-12-27] MEDS: Apixaban 2.5 MG TAB PO SCH ×2 (08:13→20:26)
[2021-12-27] MEDS: Atorvastatin Calcium 20 MG TAB PO SCH (20:26)
[2021-12-27] MEDS: Acetaminophen 500 MG TAB PO PRN (20:26)
[2021-12-28 04:47] LABS: Anion Gap 12 mmol/L (10-20); BUN (Urea Nitrogen) 32 mg/dL (9.8-20.1); Calc. Creatinine Clearance 85 mL/min (70-130); Calcium 8.9 mg/dL (7.8-10.44); Carbon Dioxide 29 mmol/L (23-31); Chloride 107 mmol/L (98-107); Estimated GFR 34; Glucose 84 mg/dL (80-115); Potassium 3.5 mmol/L (3.5-5.1); Sodium 144 mmol/L (136-145)
[2021-12-28 04:53] LABS: Eosinophils 3 % (0-10); Hemoglobin 10.2 g/dL (12.0-16.0); Hypochromia SLIGHT = 6-15 cells (100X) (0-5/hpf); Lymphocytes 22 % (21-51); MDiff Complete? YES; Macrocytosis SLIGHT = 6-15 cells (100X) (0-5/hpf); Mean Corpuscular Hemoglobin 31.2 pg (27.0-31.0); Mean Platelet Volume 9.5 fL (7.4-10.4); Monocytes 14 % (0-10); Neutrophil 61 % (42-75); Ovalocytes SLIGHT = 2-5 cells (100X) (0-1/hpf); Platelet Count 106 thou/uL (130-400); Platelet Morphology Comment Appears Decreased; Polychromasia SLIGHT = 2-3 cells (100X) (0-2/hpf); RBC Distribution Width 16.9 % (11.5-14.5); Red Blood Cell (RBC) Count 3.25 mill/uL (4.20-5.40)
[2021-12-28] MEDS: Folic Acid 1 MG TAB PO SCH (09:16)
[2021-12-28] MEDS: Alogliptin 6.25 MG TAB PO SCH (09:16)
[2021-12-28] MEDS: Cyanocobalamin (Vitamin B-12) 1,000 MCG TAB PO SCH (09:16)
[2021-12-28] MEDS: Cholecalciferol 1,000 UNITS (25 MCG) TAB PO SCH (09:17)
[2021-12-28] MEDS: Metoprolol Tartrate 50 MG TAB PO SCH ×2 (09:17→20:45)
[2021-12-28] MEDS: Apixaban 2.5 MG TAB PO SCH ×2 (09:17→20:45)
[2021-12-28] MEDS: rOPINIRole HCl 1 MG TAB PO SCH (09:17)
[2021-12-28 12:11] VITALS: BMI 69.0
[2021-12-28 14:01] VITALS: BP 131/112
[2021-12-28] MEDS: Atorvastatin Calcium 20 MG TAB PO SCH (20:45)
[2021-12-28] MEDS: Loperamide HCl 2 MG CAP PO PRN (20:45)
[2021-12-29 04:35] LABS: Anion Gap 10 mmol/L (10-20); BUN (Urea Nitrogen) 26 mg/dL (9.8-20.1); Calc. Creatinine Clearance 92 mL/min (70-130); Calcium 8.3 mg/dL (7.8-10.44); Carbon Dioxide 27 mmol/L (23-31); Chloride 107 mmol/L (98-107); Estimated GFR 38; Glucose 85 mg/dL (80-115); Potassium 3.3 mmol/L (3.5-5.1); Sodium 141 mmol/L (136-145)
[2021-12-29 04:59] LABS: Band 6 % (5-11); Eosinophils 3 % (0-10); Hemoglobin 9.9 g/dL (12.0-16.0); Lymphocytes 13 % (21-51); MDiff Complete? YES; Mean Corpuscular HGB CONC 30.9 g/dL (32.0-36.0); Mean Corpuscular Hemoglobin 30.7 pg (27.0-31.0); Mean Corpuscular Volume 99.3 fL (78.0-98.0); Mean Platelet Volume 9.5 fL (7.4-10.4); Monocytes 19 % (0-10); Myelocyte 1 % (0-0); Neutrophil 57 % (42-75); Platelet Count 102 thou/uL (130-400); Platelet Morphology Comment Appears Decreased; RBC Distribution Width 17.1 % (11.5-14.5); Reactive Lymphocytes 1 % (0-10); Red Blood Cell (RBC) Count 3.21 mill/uL (4.20-5.40); White Blood Cell (WBC) Count 5.8 thou/uL (4.8-10.8)
[2021-12-29] MEDS ORDERED: Potassium Chloride 20 MEQ TAB PO SCH (07:00)
[2021-12-29] MEDS: Cyanocobalamin (Vitamin B-12) 1,000 MCG TAB PO SCH (07:41)
[2021-12-29] MEDS: Folic Acid 1 MG TAB PO SCH (07:42)
[2021-12-29] MEDS: rOPINIRole HCl 1 MG TAB PO SCH (07:42)
[2021-12-29] MEDS: Cholecalciferol 1,000 UNITS (25 MCG) TAB PO SCH (07:42)
[2021-12-29] MEDS: Apixaban 2.5 MG TAB PO SCH (07:43)
[2021-12-29] MEDS: Metoprolol Tartrate 50 MG TAB PO SCH (07:43)
[2021-12-29] MEDS: Alogliptin 6.25 MG TAB PO SCH (07:43)
[2021-12-29 16:25] VITALS: TEMP 98
== END 2021-12-29 17:05 | disposition swing bed (61) | DRG 208 ==
LOC: CCU 21:25 → IMCU/EMU 12-21 14:21
PROVIDERS: ADMIT Family Medicine; ATTEND Hospitalist
PROC: 5A1945Z Respiratory Ventilation, 24-96 Consecutive Hours (ICD-10-PCS; principal; 2021-12-15)
PROC: 0BH17EZ Insertion of Endotracheal Airway into Trachea, Via Natural or Artificial Opening (ICD-10-PCS; 2021-12-15)
PROC: 0D9670Z Drainage of Stomach with Drainage Device, Via Natural or Artificial Opening (ICD-10-PCS; 2021-12-15)
PROC: 3E033XZ Introduction of Vasopressor into Peripheral Vein, Percutaneous Approach (ICD-10-PCS; 2021-12-15)
PROC: 0BC78ZZ Extirpation of Matter from Left Main Bronchus, Via Natural or Artificial Opening Endoscopic (ICD-10-PCS; 2021-12-16)
PROC: 0BC88ZZ Extirpation of Matter from Left Upper Lobe Bronchus, Via Natural or Artificial Opening Endoscopic (ICD-10-PCS; 2021-12-16)
PROC: 5A09557 Assistance with Respiratory Ventilation, Greater than 96 Consecutive Hours, Continuous Positive Airway Pressure (ICD-10-PCS; 2021-12-19)
DX: J69.0 Pneumonitis due to inhalation of food and vomit (principal); I50.33 Acute on chronic diastolic (congestive) heart failure; J96.21 Acute and chronic respiratory failure with hypoxia; J96.22 Acute and chronic respiratory failure with hypercapnia; G93.41 Metabolic encephalopathy; I13.0 Hypertensive heart and chronic kidney disease with heart failure and stage 1 through stage 4 chronic kidney disease, or unspecified chronic kidney disease; N18.4 Chronic kidney disease, stage 4 (severe); J45.901 Unspecified asthma with (acute) exacerbation; I48.20 Chronic atrial fibrillation, unspecified; E87.2 Acidosis; N17.9 Acute kidney failure, unspecified; T17.590A Other foreign object in bronchus causing asphyxiation, initial encounter; E66.2 Morbid (severe) obesity with alveolar hypoventilation; G93.1 Anoxic brain damage, not elsewhere classified; E87.0 Hyperosmolality and hypernatremia; Z68.44 Body mass index [BMI] 60.0-69.9, adult; Z20.822 Contact with and (suspected) exposure to COVID-19; E78.5 Hyperlipidemia, unspecified; E11.22 Type 2 diabetes mellitus with diabetic chronic kidney disease; D69.6 Thrombocytopenia, unspecified; I89.0 Lymphedema, not elsewhere classified; D63.1 Anemia in chronic kidney disease; I95.9 Hypotension, unspecified; L89.152 Pressure ulcer of sacral region, stage 2; R19.7 Diarrhea, unspecified; E87.6 Hypokalemia; Z90.49 Acquired absence of other specified parts of digestive tract; Z90.710 Acquired absence of both cervix and uterus; Z98.84 Bariatric surgery status; Z86.16 Personal history of COVID-19; Z91.041 Radiographic dye allergy status; Z88.8 Allergy status to other drugs, medicaments and biological substances; Z79.01 Long term (current) use of anticoagulants; Z79.51 Long term (current) use of inhaled steroids; Z79.899 Other long term (current) drug therapy
CPT/HCPCS: 36415; 36416; 36600; 71045; 80048; 80053; 81001; 82550; 82570; 82805; 83605; 83735; 83880; 84100; 84145; 84156; 84300; 84443; 84540; 85025; 85652; 86160; 87070; 87086; 87205; 87324; 87449; 93005; 93010; 94002; 94003; 94640; 94660; J0610; J1815; J1940; J2405; J2543; J2920; J3010; J3475; J3490; J7120; J7620; J7999; P9047; Q4081

== ENCOUNTER 2022-01-19 12:27 | Inpatient (IN) | payer OTHER ==
[2022-01-19] MEDS ORDERED: Acetaminophen 500 MG TAB ONE (12:57)
[2022-01-19 13:44] LABS: #Eosinphils 0.5 thou/uL (0.0-0.7); #Lymphocytes 1.6 thou/uL (1.20-3.40); #Neutrophils 8.7 thou/uL (1.40-6.50); %Basophils 0.4 % (0.0-1.0); %Eosinophils 4.3 % (0.0-10.0); %Lymphocytes 13.8 % (21.0-51.0); %Neutrophils 73.5 % (42.0-75.0); Hemoglobin 8.8 g/dL (12.0-16.0); Mean Corpuscular HGB CONC 30.4 g/dL (32.0-36.0); Mean Corpuscular Hemoglobin 30.3 pg (27.0-31.0); Mean Corpuscular Volume 99.8 fL (78.0-98.0); Mean Platelet Volume 8.2 fL (7.4-10.4); Platelet Count 238 thou/uL (130-400); RBC Distribution Width 17.5 % (11.5-14.5); Red Blood Cell (RBC) Count 2.91 mill/uL (4.20-5.40); White Blood Cell (WBC) Count 11.8 thou/uL (4.8-10.8)
[2022-01-19 14:01] LABS: ALT (SGPT) 17 U/L (8-55); AST (SGOT) 13 U/L (5-34); Albumin 2.2 g/dL (3.4-4.8); Alkaline Phosphatase 176 U/L (40-110); Anion Gap 13 mmol/L (10-20); BUN (Urea Nitrogen) 20 mg/dL (9.8-20.1); Bilirubin, Total 0.5 mg/dL (0.2-1.2); Calc. Creatinine Clearance 0 mL/min (70-130); Calcium 8.1 mg/dL (7.8-10.44); Carbon Dioxide 23 mmol/L (23-31); Chloride 107 mmol/L (98-107); Estimated GFR 30; Globulin 2.9 g/dL (2.4-3.5); Glucose 90 mg/dL (80-115); Lipase 9 U/L (8-78); Protein, Total 5.1 g/dL (5.8-8.1); Sodium 138 mmol/L (136-145)
[2022-01-19 14:10] LABS: CKMB 0.9 ng/mL (0-6.6)
[2022-01-19] MEDS ORDERED: Loperamide HCl 2 MG CAP PO PRN (15:44)
[2022-01-19] MEDS ORDERED: Ondansetron ODT 4 MG TAB PO PRN (15:44)
[2022-01-19] MEDS ORDERED: Senokot S 8.6-50 MG TAB PO PRN (15:44)
[2022-01-19] MEDS ORDERED: Acetaminophen 325 MG TAB PO PRN (15:44)
[2022-01-19] MEDS ORDERED: Epoetin (ESRD) 10,000 UNITS/ML VIAL SC SCH (16:00)
[2022-01-19 17:03] LABS: SARS-CoV-2 NAA Rapid Test Not Detected (NotDetected)
[2022-01-19 17:44] LABS: Troponin I 0.036 ng/mL (< 0.028)
[2022-01-19 17:46] VITALS: BMI 63.6
[2022-01-19] MEDS: Sodium Chloride 0.9% 1,000 ML IV SCH (18:03)
[2022-01-19] MEDS ORDERED: Insulin Regular 300 UNITS/3 ML VIAL SC PRN (19:10)
[2022-01-19 19:38] LABS: Troponin I 0.027 ng/mL (< 0.028)
[2022-01-19] MEDS: Atorvastatin Calcium 20 MG TAB PO SCH (22:57)
[2022-01-19] MEDS: Metoprolol Tartrate 50 MG TAB PO SCH (22:57)
[2022-01-19] MEDS: Zolpidem Tartrate 5 MG TAB PO PRN (22:58)
[2022-01-19] MEDS: Apixaban 2.5 MG TAB PO SCH (22:58)
[2022-01-19] MEDS: HYDROcodone/Acetaminophen 5/325 mg Tablet PO PRN (22:59)
[2022-01-20 04:50] LABS: #Eosinphils 0.4 thou/uL (0.0-0.7); #Lymphocytes 2.2 thou/uL (1.20-3.40); #Monocytes 0.9 thou/uL (0.11-0.59); #Neutrophils 8.1 thou/uL (1.40-6.50); %Basophils 0.2 % (0.0-1.0); %Eosinophils 3.7 % (0.0-10.0); %Lymphocytes 18.7 % (21.0-51.0); %Monocytes 7.4 % (0.0-10.0); Hemoglobin 7.8 g/dL (12.0-16.0); Mean Corpuscular HGB CONC 31.3 g/dL (32.0-36.0); Mean Corpuscular Hemoglobin 31.1 pg (27.0-31.0); Mean Corpuscular Volume 99.3 fL (78.0-98.0); Mean Platelet Volume 8.3 fL (7.4-10.4); Platelet Count 202 thou/uL (130-400); RBC Distribution Width 17.1 % (11.5-14.5); Red Blood Cell (RBC) Count 2.52 mill/uL (4.20-5.40); White Blood Cell (WBC) Count 11.5 thou/uL (4.8-10.8)
[2022-01-20 05:15] LABS: Anion Gap 14 mmol/L (10-20); BUN (Urea Nitrogen) 19 mg/dL (9.8-20.1); Calc. Creatinine Clearance 81 mL/min (70-130); Calcium 8.2 mg/dL (7.8-10.44); Carbon Dioxide 20 mmol/L (23-31); Chloride 108 mmol/L (98-107); Estimated GFR 35; Glucose 75 mg/dL (80-115); Potassium 4.4 mmol/L (3.5-5.1); Sodium 138 mmol/L (136-145)
[2022-01-20] MEDS ORDERED: Prevnar 13-Val Conj/PF 0.5 ML SYRINGE IM ONE (09:00)
[2022-01-20] MEDS: Cholecalciferol 1,000 UNITS (25 MCG) TAB PO SCH (09:31)
[2022-01-20] MEDS: Apixaban 2.5 MG TAB PO SCH ×2 (09:31→20:55)
[2022-01-20] MEDS: Folic Acid 1 MG TAB PO SCH (09:31)
[2022-01-20] MEDS: Metoprolol Tartrate 50 MG TAB PO SCH ×2 (09:31→20:55)
[2022-01-20] MEDS: Famotidine 20 MG TAB PO SCH (09:31)
[2022-01-20] MEDS: Alogliptin 6.25 MG TAB PO SCH (09:31)
[2022-01-20] MEDS: HYDROcodone/Acetaminophen 10/325 mg Tablet PO PRN ×2 (13:07→21:53)
[2022-01-20] MEDS: Sodium Chloride 0.9% 1,000 ML IV SCH (18:10)
[2022-01-20] MEDS: Cephalexin 250 MG CAP PO SCH ×2 (19:14→23:09)
[2022-01-20] MEDS: Atorvastatin Calcium 20 MG TAB PO SCH (20:55)
[2022-01-21 05:01] LABS: Anion Gap 15 mmol/L (10-20); BUN (Urea Nitrogen) 17 mg/dL (9.8-20.1); Calc. Creatinine Clearance 86 mL/min (70-130); Calcium 8.1 mg/dL (7.8-10.44); Carbon Dioxide 18 mmol/L (23-31); Chloride 109 mmol/L (98-107); Estimated GFR 37; Glucose 77 mg/dL (80-115); Potassium 4.7 mmol/L (3.5-5.1); Sodium 137 mmol/L (136-145)
[2022-01-21] MEDS: Cephalexin 250 MG CAP PO SCH ×3 (05:41→17:51)
[2022-01-21] MEDS: HYDROcodone/Acetaminophen 10/325 mg Tablet PO PRN ×2 (05:43→20:54)
[2022-01-21] MEDS: Cholecalciferol 1,000 UNITS (25 MCG) TAB PO SCH (09:18)
[2022-01-21] MEDS: Apixaban 2.5 MG TAB PO SCH ×2 (09:18→20:55)
[2022-01-21] MEDS: Folic Acid 1 MG TAB PO SCH (09:18)
[2022-01-21] MEDS: Metoprolol Tartrate 50 MG TAB PO SCH ×2 (09:19→20:55)
[2022-01-21] MEDS: Famotidine 20 MG TAB PO SCH (09:19)
[2022-01-21] MEDS: Sodium Chloride 0.9% 1,000 ML IV SCH ×2 (11:41→16:30)
[2022-01-21] MEDS: Alogliptin 6.25 MG TAB PO SCH (11:44)
[2022-01-21] MEDS ORDERED: Furosemide 20 MG TAB PO SCH (18:00)
[2022-01-21] MEDS: Nystatin Powder 15 GM BOT TOP PRN (18:12)
[2022-01-21] MEDS: Atorvastatin Calcium 20 MG TAB PO SCH (20:55)
[2022-01-21] MEDS: Zolpidem Tartrate 5 MG TAB PO PRN (20:57)
[2022-01-22] MEDS: Cephalexin 250 MG CAP PO SCH ×5 (00:49→23:21)
[2022-01-22 05:15] LABS: #Eosinphils 0.7 thou/uL (0.0-0.7); #Lymphocytes 2.2 thou/uL (1.20-3.40); #Monocytes 0.9 thou/uL (0.11-0.59); #Neutrophils 7.1 thou/uL (1.40-6.50); %Basophils 0.4 % (0.0-1.0); %Eosinophils 6.1 % (0.0-10.0); %Lymphocytes 20.1 % (21.0-51.0); %Monocytes 7.9 % (0.0-10.0); %Neutrophils 65.5 % (42.0-75.0); Hemoglobin 8.1 g/dL (12.0-16.0); Mean Corpuscular Hemoglobin 31.2 pg (27.0-31.0); Platelet Count 199 thou/uL (130-400); RBC Distribution Width 17.7 % (11.5-14.5); Red Blood Cell (RBC) Count 2.59 mill/uL (4.20-5.40); White Blood Cell (WBC) Count 10.9 thou/uL (4.8-10.8)
[2022-01-22 05:32] LABS: Anion Gap 16 mmol/L (10-20); BUN (Urea Nitrogen) 17 mg/dL (9.8-20.1); Calc. Creatinine Clearance 90 mL/min (70-130); Calcium 8.3 mg/dL (7.8-10.44); Carbon Dioxide 20 mmol/L (23-31); Chloride 109 mmol/L (98-107); Estimated GFR 39; Glucose 87 mg/dL (80-115); Potassium 4.6 mmol/L (3.5-5.1); Sodium 140 mmol/L (136-145)
[2022-01-22 08:16] LABS: #Basophils 0.1 thou/uL (0.0-0.2); #Eosinphils 0.7 thou/uL (0.0-0.7); #Lymphocytes 2.4 thou/uL (1.20-3.40); #Neutrophils 7.4 thou/uL (1.40-6.50); %Basophils 0.8 % (0.0-1.0); %Eosinophils 6.4 % (0.0-10.0); %Lymphocytes 20.8 % (21.0-51.0); %Monocytes 8.6 % (0.0-10.0); %Neutrophils 63.4 % (42.0-75.0); Hemoglobin 8.2 g/dL (12.0-16.0); Mean Corpuscular Hemoglobin 31.2 pg (27.0-31.0); Mean Platelet Volume 7.8 fL (7.4-10.4); Platelet Count 203 thou/uL (130-400); RBC Distribution Width 17.4 % (11.5-14.5); Red Blood Cell (RBC) Count 2.63 mill/uL (4.20-5.40); White Blood Cell (WBC) Count 11.7 thou/uL (4.8-10.8)
[2022-01-22 08:33] LABS: Anion Gap 16 mmol/L (10-20); BUN (Urea Nitrogen) 16 mg/dL (9.8-20.1); Calc. Creatinine Clearance 85 mL/min (70-130); Calcium 8.3 mg/dL (7.8-10.44); Carbon Dioxide 21 mmol/L (23-31); Chloride 109 mmol/L (98-107); Estimated GFR 36; Glucose 78 mg/dL (80-115); Potassium 4.7 mmol/L (3.5-5.1); Sodium 141 mmol/L (136-145)
[2022-01-22] MEDS: Famotidine 20 MG TAB PO SCH (10:24)
[2022-01-22] MEDS: Metoprolol Tartrate 50 MG TAB PO SCH ×2 (10:25→21:26)
[2022-01-22] MEDS: Apixaban 2.5 MG TAB PO SCH ×2 (10:25→21:26)
[2022-01-22] MEDS: Folic Acid 1 MG TAB PO SCH (10:25)
[2022-01-22] MEDS: Cholecalciferol 1,000 UNITS (25 MCG) TAB PO SCH (10:25)
[2022-01-22] MEDS: Alogliptin 6.25 MG TAB PO SCH (10:26)
[2022-01-22] MEDS: Sodium Chloride 0.9% 1,000 ML IV SCH (13:05)
[2022-01-22] MEDS: HYDROcodone/Acetaminophen 10/325 mg Tablet PO PRN ×2 (14:50→21:26)
[2022-01-22] MEDS: Zolpidem Tartrate 5 MG TAB PO PRN (21:26)
[2022-01-22] MEDS: Atorvastatin Calcium 20 MG TAB PO SCH (21:26)
[2022-01-22] MEDS: Nystatin Powder 15 GM BOT TOP PRN (21:30)
[2022-01-23] MEDS: Cephalexin 250 MG CAP PO SCH ×4 (05:12→23:57)
[2022-01-23] MEDS: Alogliptin 6.25 MG TAB PO SCH (08:08)
[2022-01-23] MEDS: Apixaban 2.5 MG TAB PO SCH ×2 (08:08→21:48)
[2022-01-23] MEDS: Cholecalciferol 1,000 UNITS (25 MCG) TAB PO SCH (08:08)
[2022-01-23] MEDS: Metoprolol Tartrate 50 MG TAB PO SCH ×2 (08:08→21:48)
[2022-01-23] MEDS: Folic Acid 1 MG TAB PO SCH (08:08)
[2022-01-23] MEDS: Famotidine 20 MG TAB PO SCH (08:08)
[2022-01-23 08:47] LABS: #Basophils 0.1 thou/uL (0.0-0.2); #Eosinphils 0.7 thou/uL (0.0-0.7); #Lymphocytes 2.3 thou/uL (1.20-3.40); #Neutrophils 7.8 thou/uL (1.40-6.50); %Basophils 0.5 % (0.0-1.0); %Eosinophils 6.3 % (0.0-10.0); %Lymphocytes 19.6 % (21.0-51.0); %Monocytes 8.3 % (0.0-10.0); %Neutrophils 65.4 % (42.0-75.0); Hemoglobin 7.9 g/dL (12.0-16.0); Mean Corpuscular HGB CONC 30.7 g/dL (32.0-36.0); Mean Corpuscular Hemoglobin 31.1 pg (27.0-31.0); Mean Platelet Volume 8.2 fL (7.4-10.4); Platelet Count 205 thou/uL (130-400); RBC Distribution Width 17.9 % (11.5-14.5); Red Blood Cell (RBC) Count 2.54 mill/uL (4.20-5.40); White Blood Cell (WBC) Count 11.9 thou/uL (4.8-10.8)
[2022-01-23 09:06] LABS: Anion Gap 13 mmol/L (10-20); BUN (Urea Nitrogen) 16 mg/dL (9.8-20.1); Calc. Creatinine Clearance 87 mL/min (70-130); Calcium 8.7 mg/dL (7.8-10.44); Carbon Dioxide 22 mmol/L (23-31); Chloride 108 mmol/L (98-107); Estimated GFR 37; Glucose 74 mg/dL (80-115); Potassium 4.4 mmol/L (3.5-5.1); Sodium 139 mmol/L (136-145)
[2022-01-23] MEDS: Sodium Chloride 0.9% 1,000 ML IV SCH (10:43)
[2022-01-23] MEDS: Zolpidem Tartrate 5 MG TAB PO PRN (21:48)
[2022-01-23] MEDS: Atorvastatin Calcium 20 MG TAB PO SCH (21:48)
[2022-01-23] MEDS: HYDROcodone/Acetaminophen 5/325 mg Tablet PO PRN (21:49)
[2022-01-23] MEDS: Nystatin Powder 15 GM BOT TOP PRN (21:50)
[2022-01-24] MEDS: HYDROcodone/Acetaminophen 10/325 mg Tablet PO PRN (01:10)
[2022-01-24] MEDS: Cephalexin 250 MG CAP PO SCH ×2 (05:13→11:43)
[2022-01-24] MEDS: Sodium Chloride 0.9% 1,000 ML IV SCH (05:15)
[2022-01-24] MEDS: Folic Acid 1 MG TAB PO SCH (08:17)
[2022-01-24] MEDS: Metoprolol Tartrate 50 MG TAB PO SCH (08:17)
[2022-01-24] MEDS: Alogliptin 6.25 MG TAB PO SCH (08:17)
[2022-01-24] MEDS: Cholecalciferol 1,000 UNITS (25 MCG) TAB PO SCH (08:17)
[2022-01-24] MEDS: Famotidine 20 MG TAB PO SCH (08:18)
[2022-01-24] MEDS: Apixaban 2.5 MG TAB PO SCH (08:18)
[2022-01-24] MEDS ORDERED: Ibuprofen 200 MG TAB PO PRN (09:54)
[2022-01-24 11:41] VITALS: BP 171/97; TEMP 97.7
[2022-01-25] MEDS ORDERED: rOPINIRole HCl 1 MG TAB PO SCH (09:00)
== END 2022-01-24 13:15 | DRG 603 ==
LOC: ERS 12:27 → 2NO 15:18 → OBSVTOIN 01-21 12:43
PROVIDERS: ADMIT Family Medicine; ATTEND Family Medicine
DX: L03.311 Cellulitis of abdominal wall (principal); I13.0 Hypertensive heart and chronic kidney disease with heart failure and stage 1 through stage 4 chronic kidney disease, or unspecified chronic kidney disease; I50.30 Unspecified diastolic (congestive) heart failure; N18.4 Chronic kidney disease, stage 4 (severe); Z68.44 Body mass index [BMI] 60.0-69.9, adult; E78.5 Hyperlipidemia, unspecified; R53.81 Other malaise; E66.01 Morbid (severe) obesity due to excess calories; R10.9 Unspecified abdominal pain; I48.91 Unspecified atrial fibrillation; F31.9 Bipolar disorder, unspecified; N64.4 Mastodynia; F20.9 Schizophrenia, unspecified; Z20.822 Contact with and (suspected) exposure to COVID-19; G89.29 Other chronic pain; Z85.41 Personal history of malignant neoplasm of cervix uteri; Z90.710 Acquired absence of both cervix and uterus; Z88.8 Allergy status to other drugs, medicaments and biological substances; Z91.041 Radiographic dye allergy status; Z90.49 Acquired absence of other specified parts of digestive tract; Z92.21 Personal history of antineoplastic chemotherapy; Z79.899 Other long term (current) drug therapy; Z98.890 Other specified postprocedural states
CPT/HCPCS: 36415; 36416; 71250; 74177; 80048; 80053; 82553; 83690; 83880; 84484; 85025; 93005; G0378; J7050; U0002

== ENCOUNTER 2022-02-05 18:01 | Emergency (ER) | payer OTHER ==
[2022-02-05 18:56] LABS: #Eosinphils 0.7 thou/uL (0.0-0.7); #Lymphocytes 1.9 thou/uL (1.20-3.40); #Monocytes 0.7 thou/uL (0.11-0.59); #Neutrophils 5.2 thou/uL (1.40-6.50); %Basophils 0.3 % (0.0-1.0); %Eosinophils 8.2 % (0.0-10.0); %Lymphocytes 22.3 % (21.0-51.0); %Monocytes 8.5 % (0.0-10.0); %Neutrophils 60.7 % (42.0-75.0); Hemoglobin 7.5 g/dL (12.0-16.0); Mean Corpuscular HGB CONC 31.7 g/dL (32.0-36.0); Mean Platelet Volume 7.6 fL (7.4-10.4); Platelet Count 222 thou/uL (130-400); RBC Distribution Width 18.2 % (11.5-14.5); Red Blood Cell (RBC) Count 2.35 mill/uL (4.20-5.40); White Blood Cell (WBC) Count 8.6 thou/uL (4.8-10.8)
[2022-02-05 19:02] LABS: INR-International Normal Ratio 1.5; Prothrombin Time 17.9 sec (12.0-14.7)
[2022-02-05 19:03] LABS: PTT 55.4 sec (22.9-36.1)
[2022-02-05 19:10] LABS: ALT (SGPT) 11 U/L (8-55); AST (SGOT) 13 U/L (5-34); Albumin 1.8 g/dL (3.4-4.8); Alkaline Phosphatase 167 U/L (40-110); Anion Gap 11 mmol/L (10-20); BUN (Urea Nitrogen) 25 mg/dL (9.8-20.1); Bilirubin, Total 0.2 mg/dL (0.2-1.2); Calc. Creatinine Clearance 0 mL/min (70-130); Calcium 8.3 mg/dL (7.8-10.44); Carbon Dioxide 23 mmol/L (23-31); Chloride 106 mmol/L (98-107); Estimated GFR 29; Globulin 3.5 g/dL (2.4-3.5); Glucose 83 mg/dL (80-115); Iron 39 ug/dL (50-170); Iron Binding Capacity, Total 105 mcg/dL (265-497); Potassium 5.1 mmol/L (3.5-5.1); Protein, Total 5.3 g/dL (5.8-8.1); Sodium 135 mmol/L (136-145)
== END 2022-02-05 23:59 | disposition home or self-care (01) ==
LOC: ERS 18:01
DX: I13.2 Hypertensive heart and chronic kidney disease with heart failure and with stage 5 chronic kidney disease, or end stage renal disease (principal); E11.22 Type 2 diabetes mellitus with diabetic chronic kidney disease; N18.6 End stage renal disease; I50.9 Heart failure, unspecified; D63.8 Anemia in other chronic diseases classified elsewhere; I48.91 Unspecified atrial fibrillation; Z85.41 Personal history of malignant neoplasm of cervix uteri
CPT/HCPCS: 36430; 80053; 82728; 83540; 83550; 85025; 85610; 85730; 86850; 86900; 86901; 86920; 86922; P9016; 36415; 99284

== ENCOUNTER 2023-05-31 01:14 | Inpatient (IN) | payer OTHER ==
[2023-05-31 02:05] VITALS: BMI 60.9
[2023-05-31] MEDS ORDERED: Acetaminophen 650 MG Suppository PR PRN (03:43)
[2023-05-31] MEDS ORDERED: Ondansetron PF 4 MG/2 ML Vial IVP PRN ×2 (03:43→20:38)
[2023-05-31] MEDS ORDERED: Ondansetron ODT 4 MG TAB PO PRN ×2 (03:43→20:38)
[2023-05-31] MEDS ORDERED: Dextrose 5% in Water 1,000 ML IV PRN (04:11)
[2023-05-31] MEDS ORDERED: HumaLOG 300 UNITS/3 ML VIAL SC PRN ×2 (04:11)
[2023-05-31] MEDS ORDERED: Glucagon 1 MG/ML KIT IM PRN (04:11)
[2023-05-31] MEDS ORDERED: Dextrose 50% Abboject 50 ML SYRINGE SLOW IVP PRN (04:11)
[2023-05-31] MEDS ORDERED: cefTRIAXone\\ROCEPHIN 500 MG in Sodium Chloride 0.9% 100 ML IVPB SCH (21:00)
[2023-05-31] MEDS ORDERED: cefTRIAXone\\ROCEPHIN 500 MG in Sodium Chloride 0.9% 0 ML IVPB SCH (21:00)
[2023-05-31] MEDS: Isosorbide Mononitrate 20 MG TAB PO SCH (21:11)
[2023-05-31] MEDS: cefTRIAXone\\ROCEPHIN 1 GM in Sodium Chloride 0.9% 100 ML IVPB SCH (21:14)
[2023-05-31] MEDS: Gabapentin 100 MG CAP PO SCH (21:14)
[2023-05-31] MEDS: Doxycycline 100 MG CAP PO SCH (21:14)
[2023-05-31] MEDS: Atorvastatin Calcium 20 MG TAB PO SCH (21:15)
[2023-05-31] MEDS: Apixaban 5 MG TAB PO SCH (21:15)
[2023-05-31] MEDS: Oxybutynin 5 MG TAB PO SCH (21:15)
[2023-05-31] MEDS ORDERED: Azithromycin 500 MG in Sodium Chloride 0.9% 250 ML 250 ML IVPB SCH (22:00)
[2023-06-01] MEDS: Acetaminophen 325 MG TAB PO PRN (05:53)
[2023-06-01 06:16] LABS: #Eosinphils 0.3 thou/uL (0.0-0.7); #Monocytes 0.5 thou/uL (0.11-0.59); #Neutrophils 3.7 thou/uL (1.40-6.50); %Basophils 0.5 % (0.0-1.0); %Eosinophils 4.3 % (0.0-10.0); %Monocytes 8.6 % (0.0-10.0); %Neutrophils 64.2 % (42.0-75.0); Hematocrit 22.3 % (36.0-47.0); Hemoglobin 6.9 g/dL (12.0-16.0); Mean Corpuscular HGB CONC 30.9 g/dL (32.0-36.0); Mean Corpuscular Hemoglobin 35.9 pg (27.0-31.0); Mean Corpuscular Volume 116.1 fl (78.0-98.0); Mean Platelet Volume 10.6 fL (7.4-10.4); Platelet Count 142 10x3/uL (130-400); RBC Distribution Width 16.2 % (11.5-14.5); Red Blood Cell (RBC) Count 1.92 mill/uL (4.20-5.40); White Blood Cell (WBC) Count 5.8 10x3/uL (4.8-10.8)
[2023-06-01 06:39] LABS: Anisocytosis SLIGHT = 6-15 cells HPF (0-5); CellaVision Operator ID lab.abc; Macrocytosis MODERATE=16-30 cells HPF (0-5); Platelet Adequacy Comment Platelets Normal; Polychromasia SLIGHT = 2-3 cells HPF (0-2)
[2023-06-01] MEDS ORDERED: Furosemide 40 MG (4 mL) VIAL SLOW IVP SCH ×2 (07:00→11:45)
[2023-06-01 07:07] LABS: Anion Gap 11 mmol/L (10-20); BUN (Urea Nitrogen) 22 mg/dL (9.8-20.1); Calc. Creatinine Clearance 54 mL/min (70-130); Calcium 8.2 mg/dL (7.8-10.44); Carbon Dioxide 26 mmol/L (23-31); Chloride 106 mmol/L (98-107); Estimated GFR 23; Glucose 73 mg/dL (80-115); Potassium 3.7 mmol/L (3.5-5.1); Sodium 139 mmol/L (136-145)
[2023-06-01 07:37] LABS: Hematocrit 29.2 % (36.0-47.0); Hemoglobin 9.1 g/dL (12.0-16.0)
[2023-06-01] MEDS: Doxycycline 100 MG CAP PO SCH ×2 (07:54→21:54)
[2023-06-01] MEDS: Oxybutynin 5 MG TAB PO SCH ×2 (07:55→21:53)
[2023-06-01] MEDS: Gabapentin 100 MG CAP PO SCH ×3 (07:55→21:54)
[2023-06-01] MEDS: Calcitriol 0.25 MCG CAP PO SCH (07:55)
[2023-06-01] MEDS: Multivit, Therapeutic 1 TAB PO SCH (07:56)
[2023-06-01] MEDS: Apixaban 5 MG TAB PO SCH ×2 (07:56→21:53)
[2023-06-01] MEDS: Escitalopram Oxalate 20 mg Tablet PO SCH (07:56)
[2023-06-01] MEDS: Isosorbide Mononitrate 20 MG TAB PO SCH ×2 (08:03→21:52)
[2023-06-01 10:09] LABS: Hematocrit 21.1 % (36.0-47.0); Hemoglobin 6.5 g/dL (12.0-16.0)
[2023-06-01 20:03] LABS: Hematocrit 22.7 % (36.0-47.0)
[2023-06-01] MEDS: cefTRIAXone\\ROCEPHIN 1 GM in Sodium Chloride 0.9% 100 ML IVPB SCH (21:51)
[2023-06-01] MEDS: Atorvastatin Calcium 20 MG TAB PO SCH (21:53)
[2023-06-02] MEDS: Doxycycline 100 MG CAP PO SCH ×2 (08:56→21:07)
[2023-06-02] MEDS: Isosorbide Mononitrate 20 MG TAB PO SCH ×2 (08:56→21:09)
[2023-06-02] MEDS: Oxybutynin 5 MG TAB PO SCH ×2 (08:56→21:07)
[2023-06-02] MEDS: Escitalopram Oxalate 20 mg Tablet PO SCH (08:56)
[2023-06-02] MEDS: Multivit, Therapeutic 1 TAB PO SCH (08:56)
[2023-06-02] MEDS: Calcitriol 0.25 MCG CAP PO SCH (08:57)
[2023-06-02] MEDS: Apixaban 5 MG TAB PO SCH ×2 (08:57→21:09)
[2023-06-02] MEDS: Gabapentin 100 MG CAP PO SCH ×3 (08:57→21:08)
[2023-06-02] MEDS: Furosemide 40 MG TAB PO SCH (09:02)
[2023-06-02 10:18] LABS: #Eosinphils 0.2 thou/uL (0.0-0.7); #Monocytes 0.5 thou/uL (0.11-0.59); #Neutrophils 4.1 thou/uL (1.40-6.50); %Basophils 0.3 % (0.0-1.0); %Eosinophils 3.6 % (0.0-10.0); %Monocytes 8.8 % (0.0-10.0); %Neutrophils 66.8 % (42.0-75.0); Hematocrit 24.2 % (36.0-47.0); Hemoglobin 7.4 g/dL (12.0-16.0); Mean Corpuscular HGB CONC 30.6 g/dL (32.0-36.0); Mean Corpuscular Hemoglobin 34.4 pg (27.0-31.0); Mean Corpuscular Volume 112.6 fl (78.0-98.0); Mean Platelet Volume 10.4 fL (7.4-10.4); Platelet Count 128 10x3/uL (130-400); RBC Distribution Width 19.9 % (11.5-14.5); Red Blood Cell (RBC) Count 2.15 mill/uL (4.20-5.40); White Blood Cell (WBC) Count 6.2 10x3/uL (4.8-10.8)
[2023-06-02 10:42] LABS: ALT (SGPT) Less than 7 U/L (8-55); AST (SGOT) 8 U/L (5-34); Albumin 2.4 g/dL (3.4-4.8); Alkaline Phosphatase 111 U/L (40-110); Anion Gap 10 mmol/L (10-20); BUN (Urea Nitrogen) 20 mg/dL (9.8-20.1); Bilirubin, Total 0.3 mg/dL (0.2-1.2); Calc. Creatinine Clearance 56 mL/min (70-130); Calcium 8.5 mg/dL (7.8-10.44); Carbon Dioxide 26 mmol/L (23-31); Chloride 105 mmol/L (98-107); Estimated GFR 24; Globulin 4.2 g/dL (2.4-3.5); Glucose 83 mg/dL (80-115); Potassium 3.7 mmol/L (3.5-5.1); Protein, Total 6.6 g/dL (5.8-8.1); Sodium 137 mmol/L (136-145)
[2023-06-02 11:13] LABS: Anisocytosis MARKED = >30 cells HPF (0-5); CellaVision Operator ID LAB.CMB; Macrocytosis MARKED = >30 cells HPF (0-5); Ovalocytes SLIGHT = 2-5 cells HPF (0-1); Platelet Adequacy Comment Platelets Decreased; Polychromasia SLIGHT = 2-3 cells HPF (0-2)
[2023-06-02] MEDS ORDERED: Furosemide 40 MG (4 mL) VIAL SLOW IVP SCH (13:00)
[2023-06-02 13:29] LABS: Hematocrit 24.5 % (36.0-47.0); Hemoglobin 7.5 g/dL (12.0-16.0)
[2023-06-02 20:40] LABS: Hematocrit 26.9 % (36.0-47.0); Hemoglobin 8.5 g/dL (12.0-16.0)
[2023-06-02] MEDS: cefTRIAXone\\ROCEPHIN 1 GM in Sodium Chloride 0.9% 100 ML IVPB SCH (21:06)
[2023-06-02] MEDS: Atorvastatin Calcium 20 MG TAB PO SCH (21:07)
[2023-06-03 05:22] LABS: #Eosinphils 0.3 thou/uL (0.0-0.7); #Monocytes 0.6 thou/uL (0.11-0.59); #Neutrophils 4.4 thou/uL (1.40-6.50); %Basophils 0.5 % (0.0-1.0); %Eosinophils 4.8 % (0.0-10.0); %Lymphocytes 17.2 % (21.0-51.0); %Monocytes 9.5 % (0.0-10.0); %Neutrophils 66.5 % (42.0-75.0); Hematocrit 27.8 % (36.0-47.0); Hemoglobin 8.7 g/dL (12.0-16.0); Mean Corpuscular HGB CONC 31.3 g/dL (32.0-36.0); Mean Corpuscular Hemoglobin 33.5 pg (27.0-31.0); Mean Platelet Volume 10.8 fL (7.4-10.4); Platelet Count 118 10x3/uL (130-400); RBC Distribution Width 21.2 % (11.5-14.5); White Blood Cell (WBC) Count 6.6 10x3/uL (4.8-10.8)
[2023-06-03 05:40] LABS: Mean Corpuscular Volume 106.9 fl (78.0-98.0)
[2023-06-03 06:33] LABS: ALT (SGPT) Less than 7 U/L (8-55); AST (SGOT) 8 U/L (5-34); Albumin 2.3 g/dL (3.4-4.8); Alkaline Phosphatase 107 U/L (40-110); Anion Gap 12 mmol/L (10-20); BUN (Urea Nitrogen) 20 mg/dL (9.8-20.1); Bilirubin, Total 0.3 mg/dL (0.2-1.2); Calc. Creatinine Clearance 54 mL/min (70-130); Calcium 8.7 mg/dL (7.8-10.44); Carbon Dioxide 25 mmol/L (23-31); Chloride 106 mmol/L (98-107); Estimated GFR 23; Globulin 4.3 g/dL (2.4-3.5); Glucose 82 mg/dL (80-115); Potassium 3.9 mmol/L (3.5-5.1); Protein, Total 6.6 g/dL (5.8-8.1); Sodium 139 mmol/L (136-145)
[2023-06-03] MEDS: Oxybutynin 5 MG TAB PO SCH ×2 (08:59→20:41)
[2023-06-03] MEDS: Furosemide 40 MG TAB PO SCH (08:59)
[2023-06-03] MEDS: Isosorbide Mononitrate 20 MG TAB PO SCH ×2 (08:59→20:40)
[2023-06-03] MEDS: Escitalopram Oxalate 20 mg Tablet PO SCH (08:59)
[2023-06-03] MEDS: Apixaban 5 MG TAB PO SCH ×2 (08:59→20:40)
[2023-06-03] MEDS: Doxycycline 100 MG CAP PO SCH ×2 (08:59→20:41)
[2023-06-03] MEDS: Gabapentin 100 MG CAP PO SCH ×3 (09:00→20:41)
[2023-06-03] MEDS: Calcitriol 0.25 MCG CAP PO SCH (09:00)
[2023-06-03] MEDS: Multivit, Therapeutic 1 TAB PO SCH (09:00)
[2023-06-03 11:16] LABS: Iron 45 ug/dL (50-170); Iron Binding Capacity, Total 170 mcg/dL (265-497)
[2023-06-03 11:44] LABS: Band 1 % (5-11); Eosinophils 4 % (0-10); Lymphocytes 20 % (21-51); Macrocytosis SLIGHT = 6-15 cells (100X) (0-5/hpf); Polychromasia SLIGHT = 2-3 cells (100X) (0-2/hpf)
[2023-06-03 11:47] LABS: Monocytes 4 % (0-10); Neutrophil 71 % (42-75); Platelet Adequacy Comment Appears Decreased
[2023-06-03] MEDS ORDERED: Iron Sucrose Complex 200 MG in Sodium Chloride 0.9% 100 ML IVPB SCH (13:45)
[2023-06-03] MEDS ORDERED: Iron, Sodium Ferric Gluconate 250 MG in Sodium Chloride 0.9% 250 ML 250 ML IVPB SCH (14:00)
[2023-06-03] MEDS: EPOETIN ALFA-EPBX 10,000 UNITS/ML VIAL SC SCH (16:20)
[2023-06-03] MEDS: cefTRIAXone\\ROCEPHIN 1 GM in Sodium Chloride 0.9% 100 ML IVPB SCH (20:40)
[2023-06-03] MEDS: Atorvastatin Calcium 20 MG TAB PO SCH (20:41)
[2023-06-04 03:58] LABS: #Eosinphils 0.3 thou/uL (0.0-0.7); #Monocytes 0.5 thou/uL (0.11-0.59); #Neutrophils 4.8 thou/uL (1.40-6.50); %Basophils 0.3 % (0.0-1.0); %Eosinophils 4.8 % (0.0-10.0); %Lymphocytes 16.2 % (21.0-51.0); %Monocytes 7.3 % (0.0-10.0); %Neutrophils 69.9 % (42.0-75.0); Hematocrit 28.3 % (36.0-47.0); Hemoglobin 8.9 g/dL (12.0-16.0); Mean Corpuscular HGB CONC 31.4 g/dL (32.0-36.0); Mean Corpuscular Hemoglobin 33.6 pg (27.0-31.0); Mean Corpuscular Volume 106.8 fl (78.0-98.0); RBC Distribution Width 20.5 % (11.5-14.5); Red Blood Cell (RBC) Count 2.65 mill/uL (4.20-5.40); White Blood Cell (WBC) Count 6.9 10x3/uL (4.8-10.8)
[2023-06-04 04:17] LABS: Platelet Count 115 10x3/uL (130-400)
[2023-06-04 04:27] LABS: ALT (SGPT) Less than 7 U/L (8-55); AST (SGOT) 8 U/L (5-34); Albumin 2.4 g/dL (3.4-4.8); Alkaline Phosphatase 119 U/L (40-110); Anion Gap 7 mmol/L (10-20); BUN (Urea Nitrogen) 23 mg/dL (9.8-20.1); Bilirubin, Total 0.2 mg/dL (0.2-1.2); Calc. Creatinine Clearance 56 mL/min (70-130); Calcium 8.7 mg/dL (7.8-10.44); Carbon Dioxide 30 mmol/L (23-31); Chloride 104 mmol/L (98-107); Estimated GFR 24; Globulin 4.2 g/dL (2.4-3.5); Glucose 88 mg/dL (80-115); Protein, Total 6.6 g/dL (5.8-8.1); Sodium 137 mmol/L (136-145)
[2023-06-04] MEDS ORDERED: Empagliflozin 10 MG TAB PO SCH (09:00)
[2023-06-04] MEDS: Multivit, Therapeutic 1 TAB PO SCH (10:00)
[2023-06-04] MEDS: Calcitriol 0.25 MCG CAP PO SCH (10:00)
[2023-06-04] MEDS: Escitalopram Oxalate 20 mg Tablet PO SCH (10:01)
[2023-06-04] MEDS: Oxybutynin 5 MG TAB PO SCH ×2 (10:01→20:45)
[2023-06-04] MEDS: Apixaban 5 MG TAB PO SCH ×2 (10:01→20:45)
[2023-06-04] MEDS: Isosorbide Mononitrate 20 MG TAB PO SCH ×2 (10:01→20:45)
[2023-06-04] MEDS: Furosemide 40 MG TAB PO SCH (10:02)
[2023-06-04] MEDS: rOPINIRole HCl 1 MG TAB PO SCH (10:02)
[2023-06-04] MEDS: Gabapentin 100 MG CAP PO SCH ×3 (10:02→20:45)
[2023-06-04] MEDS: Atorvastatin Calcium 20 MG TAB PO SCH (20:45)
[2023-06-04] MEDS: Melatonin 3 MG TAB PO PRN (22:30)
[2023-06-05 04:26] LABS: #Eosinphils 0.4 thou/uL (0.0-0.7); #Monocytes 0.7 thou/uL (0.11-0.59); #Neutrophils 5.2 thou/uL (1.40-6.50); %Basophils 0.3 % (0.0-1.0); %Eosinophils 4.9 % (0.0-10.0); %Lymphocytes 15.1 % (21.0-51.0); %Monocytes 8.8 % (0.0-10.0); %Neutrophils 69.7 % (42.0-75.0); Hematocrit 29.2 % (36.0-47.0); Hemoglobin 9.2 g/dL (12.0-16.0); Mean Corpuscular HGB CONC 31.5 g/dL (32.0-36.0); Mean Corpuscular Hemoglobin 33.3 pg (27.0-31.0); Mean Corpuscular Volume 105.8 fl (78.0-98.0); Mean Platelet Volume 10.6 fL (7.4-10.4); Platelet Count 125 10x3/uL (130-400); RBC Distribution Width 19.9 % (11.5-14.5); Red Blood Cell (RBC) Count 2.76 mill/uL (4.20-5.40); White Blood Cell (WBC) Count 7.4 10x3/uL (4.8-10.8)
[2023-06-05 04:47] LABS: Phosphorus 2.5 mg/dL (2.3-4.7)
[2023-06-05 04:55] LABS: ALT (SGPT) Less than 7 U/L (8-55); AST (SGOT) 9 U/L (5-34); Albumin 2.4 g/dL (3.4-4.8); Alkaline Phosphatase 99 U/L (40-110); Anion Gap 7 mmol/L (10-20); BUN (Urea Nitrogen) 25 mg/dL (9.8-20.1); Bilirubin, Total 0.3 mg/dL (0.2-1.2); Calc. Creatinine Clearance 59 mL/min (70-130); Calcium 8.8 mg/dL (7.8-10.44); Carbon Dioxide 30 mmol/L (23-31); Chloride 104 mmol/L (98-107); Estimated GFR 26; Globulin 4.1 g/dL (2.4-3.5); Glucose 81 mg/dL (80-115); Protein, Total 6.5 g/dL (5.8-8.1); Sodium 137 mmol/L (136-145)
[2023-06-05] MEDS: Isosorbide Mononitrate 20 MG TAB PO SCH ×2 (07:54→21:31)
[2023-06-05] MEDS: Apixaban 5 MG TAB PO SCH ×2 (07:54→21:31)
[2023-06-05] MEDS: Multivit, Therapeutic 1 TAB PO SCH (07:54)
[2023-06-05] MEDS: rOPINIRole HCl 1 MG TAB PO SCH (07:55)
[2023-06-05] MEDS: Escitalopram Oxalate 20 mg Tablet PO SCH (07:55)
[2023-06-05] MEDS: Oxybutynin 5 MG TAB PO SCH ×2 (07:55→21:32)
[2023-06-05] MEDS: Calcitriol 0.25 MCG CAP PO SCH (07:55)
[2023-06-05] MEDS: Gabapentin 100 MG CAP PO SCH ×3 (07:55→21:31)
[2023-06-05] MEDS: Furosemide 40 MG TAB PO SCH (07:55)
[2023-06-05] MEDS ORDERED: Iron, Sodium Ferric Gluconate 125 MG in Sodium Chloride 0.9% 100 ML IVPB SCH (09:15)
[2023-06-05] MEDS ORDERED: Iron Sucrose Complex 100 MG in Sodium Chloride 0.9% 100 ML IVPB SCH (09:15)
[2023-06-05] MEDS: Atorvastatin Calcium 20 MG TAB PO SCH (21:31)
[2023-06-05] MEDS: Acetaminophen 325 MG TAB PO PRN (21:32)
[2023-06-05] MEDS: Melatonin 3 MG TAB PO PRN (21:32)
[2023-06-06 04:32] LABS: #Eosinphils 0.2 thou/uL (0.0-0.7); #Monocytes 0.6 thou/uL (0.11-0.59); #Neutrophils 4.5 thou/uL (1.40-6.50); %Basophils 0.3 % (0.0-1.0); %Eosinophils 3.6 % (0.0-10.0); %Lymphocytes 18.4 % (21.0-51.0); %Monocytes 8.9 % (0.0-10.0); %Neutrophils 67.3 % (42.0-75.0); Hematocrit 28.2 % (36.0-47.0); Hemoglobin 8.8 g/dL (12.0-16.0); Mean Corpuscular HGB CONC 31.2 g/dL (32.0-36.0); Mean Corpuscular Hemoglobin 33.5 pg (27.0-31.0); Mean Corpuscular Volume 107.2 fl (78.0-98.0); Mean Platelet Volume 11.3 fL (7.4-10.4); Platelet Count 127 10x3/uL (130-400); RBC Distribution Width 20.1 % (11.5-14.5); Red Blood Cell (RBC) Count 2.63 mill/uL (4.20-5.40); White Blood Cell (WBC) Count 6.6 10x3/uL (4.8-10.8)
[2023-06-06 04:55] LABS: ALT (SGPT) Less than 7 U/L (8-55); AST (SGOT) 9 U/L (5-34); Albumin 2.4 g/dL (3.4-4.8); Alkaline Phosphatase 110 U/L (40-110); Anion Gap 8 mmol/L (10-20); BUN (Urea Nitrogen) 24 mg/dL (9.8-20.1); Bilirubin, Total 0.3 mg/dL (0.2-1.2); Calc. Creatinine Clearance 59 mL/min (70-130); Carbon Dioxide 30 mmol/L (23-31); Chloride 104 mmol/L (98-107); Estimated GFR 26; Globulin 4.2 g/dL (2.4-3.5); Glucose 85 mg/dL (80-115); Protein, Total 6.6 g/dL (5.8-8.1); Sodium 138 mmol/L (136-145)
[2023-06-06] MEDS: Oxybutynin 5 MG TAB PO SCH ×2 (08:32→20:16)
[2023-06-06] MEDS: Furosemide 40 MG TAB PO SCH (08:32)
[2023-06-06] MEDS: Isosorbide Mononitrate 20 MG TAB PO SCH ×2 (08:32→20:15)
[2023-06-06] MEDS: Escitalopram Oxalate 20 mg Tablet PO SCH (08:32)
[2023-06-06] MEDS: Multivit, Therapeutic 1 TAB PO SCH (08:33)
[2023-06-06] MEDS: Gabapentin 100 MG CAP PO SCH ×3 (08:35→20:16)
[2023-06-06] MEDS: Apixaban 5 MG TAB PO SCH ×2 (08:35→20:16)
[2023-06-06] MEDS: rOPINIRole HCl 1 MG TAB PO SCH (08:35)
[2023-06-06] MEDS: Calcitriol 0.25 MCG CAP PO SCH (08:35)
[2023-06-06] MEDS ORDERED: Iron, Sodium Ferric Gluconate 125 MG in Sodium Chloride 0.9% 100 ML IVPB SCH (10:00)
[2023-06-06] MEDS: Acetaminophen 325 MG TAB PO PRN (12:17)
[2023-06-06] MEDS ORDERED: Polyvinyl Alcohol 1.4%/Povidone 0.6% Opth Drops EA EYE PRN (16:09)
[2023-06-06] MEDS: Atorvastatin Calcium 20 MG TAB PO SCH (20:16)
[2023-06-07 05:42] LABS: #Eosinphils 0.3 thou/uL (0.0-0.7); #Monocytes 0.6 thou/uL (0.11-0.59); #Neutrophils 3.7 thou/uL (1.40-6.50); %Basophils 0.2 % (0.0-1.0); %Eosinophils 5.2 % (0.0-10.0); %Lymphocytes 21.2 % (21.0-51.0); %Monocytes 9.6 % (0.0-10.0); %Neutrophils 62.1 % (42.0-75.0); Hematocrit 29.7 % (36.0-47.0); Hemoglobin 9.2 g/dL (12.0-16.0); Mean Corpuscular Hemoglobin 33.7 pg (27.0-31.0); Mean Corpuscular Volume 108.8 fl (78.0-98.0); Mean Platelet Volume 10.6 fL (7.4-10.4); Platelet Count 132 10x3/uL (130-400); RBC Distribution Width 20.6 % (11.5-14.5); Red Blood Cell (RBC) Count 2.73 mill/uL (4.20-5.40); White Blood Cell (WBC) Count 5.9 10x3/uL (4.8-10.8)
[2023-06-07 05:47] LABS: Hemoglobin A1c 5.2 % (4.0-6.0)
[2023-06-07 05:58] LABS: ALT (SGPT) Less than 7 U/L (8-55); AST (SGOT) 11 U/L (5-34); Albumin 2.5 g/dL (3.4-4.8); Alkaline Phosphatase 104 U/L (40-110); Anion Gap 10 mmol/L (10-20); BUN (Urea Nitrogen) 24 mg/dL (9.8-20.1); Bilirubin, Total 0.3 mg/dL (0.2-1.2); Calc. Creatinine Clearance 60 mL/min (70-130); Calcium 9.6 mg/dL (7.8-10.44); Carbon Dioxide 31 mmol/L (23-31); Chloride 103 mmol/L (98-107); Estimated GFR 26; Globulin 4.3 g/dL (2.4-3.5); Glucose 85 mg/dL (80-115); Potassium 4.1 mmol/L (3.5-5.1); Protein, Total 6.8 g/dL (5.8-8.1); Sodium 140 mmol/L (136-145)
[2023-06-07] MEDS: Gabapentin 100 MG CAP PO SCH ×3 (09:59→20:55)
[2023-06-07] MEDS: Multivit, Therapeutic 1 TAB PO SCH (10:00)
[2023-06-07] MEDS: Oxybutynin 5 MG TAB PO SCH ×2 (10:00→20:53)
[2023-06-07] MEDS: Calcitriol 0.25 MCG CAP PO SCH (10:01)
[2023-06-07] MEDS: Escitalopram Oxalate 20 mg Tablet PO SCH (10:01)
[2023-06-07] MEDS: rOPINIRole HCl 1 MG TAB PO SCH (10:01)
[2023-06-07] MEDS: Apixaban 5 MG TAB PO SCH ×2 (10:01→20:54)
[2023-06-07] MEDS: Folic Acid 1 MG TAB PO SCH (10:02)
[2023-06-07] MEDS: Furosemide 40 MG TAB PO SCH (10:02)
[2023-06-07] MEDS: Isosorbide Mononitrate 20 MG TAB PO SCH ×2 (10:02→20:53)
[2023-06-07] MEDS: Atorvastatin Calcium 20 MG TAB PO SCH (20:54)
[2023-06-07] MEDS: Acetaminophen 325 MG TAB PO PRN (20:55)
[2023-06-07] MEDS: Melatonin 3 MG TAB PO PRN (20:56)
[2023-06-08] MEDS: Escitalopram Oxalate 20 mg Tablet PO SCH (08:30)
[2023-06-08] MEDS: Furosemide 40 MG TAB PO SCH (08:30)
[2023-06-08] MEDS: Calcitriol 0.25 MCG CAP PO SCH (08:30)
[2023-06-08] MEDS: Oxybutynin 5 MG TAB PO SCH ×2 (08:31→20:17)
[2023-06-08] MEDS: Apixaban 5 MG TAB PO SCH ×2 (08:31→20:16)
[2023-06-08] MEDS: Multivit, Therapeutic 1 TAB PO SCH (08:31)
[2023-06-08] MEDS: Isosorbide Mononitrate 20 MG TAB PO SCH ×2 (08:31→20:16)
[2023-06-08] MEDS: Gabapentin 100 MG CAP PO SCH ×3 (08:31→20:17)
[2023-06-08] MEDS: rOPINIRole HCl 1 MG TAB PO SCH (08:31)
[2023-06-08] MEDS: Folic Acid 1 MG TAB PO SCH (08:31)
[2023-06-08 10:54] LABS: #Eosinphils 0.5 thou/uL (0.0-0.7); #Monocytes 0.8 thou/uL (0.11-0.59); #Neutrophils 4.2 thou/uL (1.40-6.50); %Basophils 0.4 % (0.0-1.0); %Eosinophils 6.8 % (0.0-10.0); %Lymphocytes 19.5 % (21.0-51.0); %Monocytes 10.9 % (0.0-10.0); %Neutrophils 60.5 % (42.0-75.0); Hematocrit 29.6 % (36.0-47.0); Hemoglobin 9.1 g/dL (12.0-16.0); Mean Corpuscular HGB CONC 30.7 g/dL (32.0-36.0); Mean Corpuscular Hemoglobin 33.6 pg (27.0-31.0); Mean Corpuscular Volume 109.2 fl (78.0-98.0); Mean Platelet Volume 11.1 fL (7.4-10.4); RBC Distribution Width 20.9 % (11.5-14.5); Red Blood Cell (RBC) Count 2.71 mill/uL (4.20-5.40); White Blood Cell (WBC) Count 6.9 10x3/uL (4.8-10.8)
[2023-06-08 10:59] LABS: Platelet Count 131 10x3/uL (130-400)
[2023-06-08 11:23] LABS: Anion Gap 11 mmol/L (10-20); BUN (Urea Nitrogen) 26 mg/dL (9.8-20.1); Calc. Creatinine Clearance 56 mL/min (70-130); Calcium 9.5 mg/dL (7.8-10.44); Carbon Dioxide 29 mmol/L (23-31); Chloride 101 mmol/L (98-107); Estimated GFR 24; Glucose 73 mg/dL (80-115); Potassium 3.7 mmol/L (3.5-5.1); Sodium 137 mmol/L (136-145)
[2023-06-08] MEDS: Atorvastatin Calcium 20 MG TAB PO SCH (20:17)
[2023-06-09] MEDS: Melatonin 3 MG TAB PO PRN ×2 (00:04→19:56)
[2023-06-09] MEDS: Calcitriol 0.25 MCG CAP PO SCH (08:18)
[2023-06-09] MEDS: Gabapentin 100 MG CAP PO SCH ×3 (08:18→19:55)
[2023-06-09] MEDS: Escitalopram Oxalate 20 mg Tablet PO SCH (08:19)
[2023-06-09] MEDS: Folic Acid 1 MG TAB PO SCH (08:19)
[2023-06-09] MEDS: Apixaban 5 MG TAB PO SCH ×2 (08:19→19:56)
[2023-06-09] MEDS: Furosemide 40 MG TAB PO SCH (08:19)
[2023-06-09] MEDS: Isosorbide Mononitrate 20 MG TAB PO SCH ×2 (08:19→19:54)
[2023-06-09] MEDS: Multivit, Therapeutic 1 TAB PO SCH (08:19)
[2023-06-09] MEDS: rOPINIRole HCl 1 MG TAB PO SCH (08:19)
[2023-06-09] MEDS: Oxybutynin 5 MG TAB PO SCH ×2 (08:20→19:55)
[2023-06-09 09:00] LABS: #Eosinphils 0.5 thou/uL (0.0-0.7); #Monocytes 0.7 thou/uL (0.11-0.59); #Neutrophils 4.5 thou/uL (1.40-6.50); %Basophils 0.3 % (0.0-1.0); %Lymphocytes 17.6 % (21.0-51.0); %Monocytes 9.6 % (0.0-10.0); %Neutrophils 64.5 % (42.0-75.0); Hemoglobin 8.8 g/dL (12.0-16.0); Mean Corpuscular HGB CONC 30.3 g/dL (32.0-36.0); Mean Corpuscular Hemoglobin 33.8 pg (27.0-31.0); Mean Corpuscular Volume 111.5 fl (78.0-98.0); Mean Platelet Volume 10.8 fL (7.4-10.4); Platelet Count 127 10x3/uL (130-400)
[2023-06-09 09:14] LABS: Anion Gap 12 mmol/L (10-20); BUN (Urea Nitrogen) 25 mg/dL (9.8-20.1); Calc. Creatinine Clearance 53 mL/min (70-130); Calcium 9.6 mg/dL (7.8-10.44); Carbon Dioxide 30 mmol/L (23-31); Chloride 101 mmol/L (98-107); Estimated GFR 22; Glucose 81 mg/dL (80-115); Potassium 3.8 mmol/L (3.5-5.1); Sodium 139 mmol/L (136-145)
[2023-06-09] MEDS ORDERED: Iron Sucrose Complex 100 MG in Sodium Chloride 0.9% 100 ML IVPB SCH (10:15)
[2023-06-09] MEDS ORDERED: Iron, Sodium Ferric Gluconate 125 MG in Sodium Chloride 0.9% 100 ML IVPB SCH (11:15)
[2023-06-09] MEDS ORDERED: Albumin 25% 25 GM (100 mL) BOT IVPB SCH (12:00)
[2023-06-09] MEDS: Acetaminophen 325 MG TAB PO PRN (19:54)
[2023-06-09] MEDS: Atorvastatin Calcium 20 MG TAB PO SCH (19:56)
[2023-06-10 07:04] LABS: #Eosinphils 0.4 thou/uL (0.0-0.7); #Monocytes 0.7 thou/uL (0.11-0.59); #Neutrophils 3.9 thou/uL (1.40-6.50); %Basophils 0.3 % (0.0-1.0); %Eosinophils 6.3 % (0.0-10.0); %Lymphocytes 22.4 % (21.0-51.0); %Neutrophils 59.1 % (42.0-75.0); Hematocrit 26.6 % (36.0-47.0); Hemoglobin 8.2 g/dL (12.0-16.0); Mean Corpuscular HGB CONC 30.8 g/dL (32.0-36.0); Mean Corpuscular Hemoglobin 34.3 pg (27.0-31.0); Mean Corpuscular Volume 111.3 fl (78.0-98.0); Platelet Count 122 10x3/uL (130-400); RBC Distribution Width 21.2 % (11.5-14.5); Red Blood Cell (RBC) Count 2.39 mill/uL (4.20-5.40); White Blood Cell (WBC) Count 6.6 10x3/uL (4.8-10.8)
[2023-06-10 07:29] LABS: Anion Gap 10 mmol/L (10-20); BUN (Urea Nitrogen) 25 mg/dL (9.8-20.1); Calc. Creatinine Clearance 52 mL/min (70-130); Calcium 9.5 mg/dL (7.8-10.44); Carbon Dioxide 31 mmol/L (23-31); Chloride 101 mmol/L (98-107); Estimated GFR 22; Glucose 82 mg/dL (80-115); Potassium 4.2 mmol/L (3.5-5.1); Sodium 138 mmol/L (136-145)
[2023-06-10 08:06] LABS: Anisocytosis MODERATE=16-30 cells HPF (0-5); CellaVision Operator ID LAB.KW3; Macrocytosis SLIGHT = 6-15 cells HPF (0-5); Platelet Adequacy Comment Platelets Decreased; Polychromasia SLIGHT = 2-3 cells HPF (0-2)
[2023-06-10] MEDS: Multivit, Therapeutic 1 TAB PO SCH (09:18)
[2023-06-10] MEDS: rOPINIRole HCl 1 MG TAB PO SCH (09:18)
[2023-06-10] MEDS: Folic Acid 1 MG TAB PO SCH (09:18)
[2023-06-10] MEDS: Escitalopram Oxalate 20 mg Tablet PO SCH (09:18)
[2023-06-10] MEDS: Calcitriol 0.25 MCG CAP PO SCH (09:18)
[2023-06-10] MEDS: Oxybutynin 5 MG TAB PO SCH ×2 (09:18→19:56)
[2023-06-10] MEDS: Apixaban 5 MG TAB PO SCH ×2 (09:19→19:55)
[2023-06-10] MEDS: Gabapentin 100 MG CAP PO SCH ×3 (09:19→19:56)
[2023-06-10] MEDS: Isosorbide Mononitrate 20 MG TAB PO SCH ×2 (09:20→19:55)
[2023-06-10] MEDS: EPOETIN ALFA-EPBX 10,000 UNITS/ML VIAL SC SCH (15:32)
[2023-06-10] MEDS: Atorvastatin Calcium 20 MG TAB PO SCH (19:55)
[2023-06-10] MEDS: Melatonin 3 MG TAB PO PRN (19:55)
[2023-06-10] MEDS: Acetaminophen 325 MG TAB PO PRN (19:56)
[2023-06-11 04:21] LABS: #Eosinphils 0.5 thou/uL (0.0-0.7); #Monocytes 0.9 thou/uL (0.11-0.59); #Neutrophils 4.7 thou/uL (1.40-6.50); %Basophils 0.4 % (0.0-1.0); %Eosinophils 6.7 % (0.0-10.0); %Lymphocytes 21.1 % (21.0-51.0); %Monocytes 11.3 % (0.0-10.0); %Neutrophils 59.4 % (42.0-75.0); Hematocrit 26.7 % (36.0-47.0); Hemoglobin 8.4 g/dL (12.0-16.0); Mean Corpuscular HGB CONC 31.5 g/dL (32.0-36.0); Mean Corpuscular Hemoglobin 34.7 pg (27.0-31.0); Mean Corpuscular Volume 110.3 fl (78.0-98.0); Mean Platelet Volume 11.4 fL (7.4-10.4); Platelet Count 142 10x3/uL (130-400); RBC Distribution Width 20.9 % (11.5-14.5); Red Blood Cell (RBC) Count 2.42 mill/uL (4.20-5.40); White Blood Cell (WBC) Count 7.9 10x3/uL (4.8-10.8)
[2023-06-11 04:46] LABS: Anion Gap 11 mmol/L (10-20); BUN (Urea Nitrogen) 26 mg/dL (9.8-20.1); Calc. Creatinine Clearance 52 mL/min (70-130); Calcium 9.3 mg/dL (7.8-10.44); Carbon Dioxide 30 mmol/L (23-31); Chloride 102 mmol/L (98-107); Estimated GFR 22; Glucose 80 mg/dL (80-115); Potassium 4.1 mmol/L (3.5-5.1); Sodium 139 mmol/L (136-145)
[2023-06-11] MEDS: Escitalopram Oxalate 20 mg Tablet PO SCH (09:12)
[2023-06-11] MEDS: Calcitriol 0.25 MCG CAP PO SCH (09:12)
[2023-06-11] MEDS: Gabapentin 100 MG CAP PO SCH ×3 (09:12→20:50)
[2023-06-11] MEDS: Folic Acid 1 MG TAB PO SCH (09:12)
[2023-06-11] MEDS: Apixaban 5 MG TAB PO SCH ×2 (09:12→20:50)
[2023-06-11] MEDS: rOPINIRole HCl 1 MG TAB PO SCH (09:13)
[2023-06-11] MEDS: Oxybutynin 5 MG TAB PO SCH ×2 (09:13→20:50)
[2023-06-11] MEDS: Multivit, Therapeutic 1 TAB PO SCH (09:13)
[2023-06-11] MEDS: Isosorbide Mononitrate 20 MG TAB PO SCH ×2 (09:13→20:50)
[2023-06-11] MEDS: Albumin 25% 25 GM (100 mL) BOT IVPB SCH ×2 (13:25→17:43)
[2023-06-11] MEDS: Atorvastatin Calcium 20 MG TAB PO SCH (20:50)
[2023-06-11] MEDS: Melatonin 3 MG TAB PO PRN (20:53)
[2023-06-12] MEDS: Albumin 25% 25 GM (100 mL) BOT IVPB SCH ×3 (00:15→18:42)
[2023-06-12 04:44] LABS: #Eosinphils 0.5 thou/uL (0.0-0.7); #Monocytes 0.7 thou/uL (0.11-0.59); #Neutrophils 3.7 thou/uL (1.40-6.50); %Basophils 0.3 % (0.0-1.0); %Eosinophils 7.6 % (0.0-10.0); %Lymphocytes 18.1 % (21.0-51.0); %Monocytes 11.2 % (0.0-10.0); %Neutrophils 61.8 % (42.0-75.0); Hematocrit 24.6 % (36.0-47.0); Hemoglobin 7.6 g/dL (12.0-16.0); Mean Corpuscular HGB CONC 30.9 g/dL (32.0-36.0); Mean Corpuscular Hemoglobin 34.2 pg (27.0-31.0); Mean Corpuscular Volume 110.8 fl (78.0-98.0); Mean Platelet Volume 11.2 fL (7.4-10.4); Platelet Count 121 10x3/uL (130-400); Red Blood Cell (RBC) Count 2.22 mill/uL (4.20-5.40)
[2023-06-12 05:11] LABS: Anion Gap 11 mmol/L (10-20); BUN (Urea Nitrogen) 24 mg/dL (9.8-20.1); Calc. Creatinine Clearance 52 mL/min (70-130); Calcium 9.6 mg/dL (7.8-10.44); Carbon Dioxide 29 mmol/L (23-31); Chloride 104 mmol/L (98-107); Estimated GFR 24; Glucose 88 mg/dL (80-115); Potassium 4.2 mmol/L (3.5-5.1); Sodium 140 mmol/L (136-145)
[2023-06-12] MEDS: Apixaban 5 MG TAB PO SCH ×2 (18:39→21:09)
[2023-06-12] MEDS: Calcitriol 0.25 MCG CAP PO SCH (18:39)
[2023-06-12] MEDS: Folic Acid 1 MG TAB PO SCH (18:40)
[2023-06-12] MEDS: Escitalopram Oxalate 20 mg Tablet PO SCH (18:40)
[2023-06-12] MEDS: Isosorbide Mononitrate 20 MG TAB PO SCH ×2 (18:41→21:09)
[2023-06-12] MEDS: Multivit, Therapeutic 1 TAB PO SCH (18:41)
[2023-06-12] MEDS: Gabapentin 100 MG CAP PO SCH ×2 (18:41→21:09)
[2023-06-12] MEDS: Oxybutynin 5 MG TAB PO SCH ×2 (18:41→21:09)
[2023-06-12] MEDS: rOPINIRole HCl 1 MG TAB PO SCH (18:42)
[2023-06-12] MEDS: Atorvastatin Calcium 20 MG TAB PO SCH (21:09)
[2023-06-13] MEDS: Albumin 25% 25 GM (100 mL) BOT IVPB SCH ×2 (00:55→04:55)
[2023-06-13 06:20] LABS: #Eosinphils 0.6 thou/uL (0.0-0.7); #Monocytes 0.6 thou/uL (0.11-0.59); #Neutrophils 4.2 thou/uL (1.40-6.50); %Basophils 0.3 % (0.0-1.0); %Eosinophils 9.6 % (0.0-10.0); %Lymphocytes 16.2 % (21.0-51.0); %Monocytes 9.6 % (0.0-10.0); %Neutrophils 63.7 % (42.0-75.0); Hematocrit 27.4 % (36.0-47.0); Hemoglobin 8.2 g/dL (12.0-16.0); Mean Corpuscular HGB CONC 29.9 g/dL (32.0-36.0); Mean Corpuscular Hemoglobin 33.5 pg (27.0-31.0); Mean Corpuscular Volume 111.8 fl (78.0-98.0); Mean Platelet Volume 11.4 fL (7.4-10.4); Platelet Count 131 10x3/uL (130-400); RBC Distribution Width 21.2 % (11.5-14.5); Red Blood Cell (RBC) Count 2.45 mill/uL (4.20-5.40); White Blood Cell (WBC) Count 6.6 10x3/uL (4.8-10.8)
[2023-06-13 06:46] LABS: Anion Gap 11 mmol/L (10-20); BUN (Urea Nitrogen) 21 mg/dL (9.8-20.1); Calc. Creatinine Clearance 54 mL/min (70-130); Calcium 10.6 mg/dL (7.8-10.44); Carbon Dioxide 30 mmol/L (23-31); Chloride 103 mmol/L (98-107); Estimated GFR 24; Glucose 78 mg/dL (80-115); Potassium 4.3 mmol/L (3.5-5.1); Sodium 140 mmol/L (136-145)
[2023-06-13 08:26] LABS: CellaVision Operator ID LAB.GE; Hypochromia SLIGHT = 6-15 cells HPF (0-5); Macrocytosis MODERATE=16-30 cells HPF (0-5); Platelet Adequacy Comment Platelets Normal; Polychromasia SLIGHT = 2-3 cells HPF (0-2)
[2023-06-13] MEDS: Acetaminophen 325 MG TAB PO PRN (09:55)
[2023-06-13] MEDS: Escitalopram Oxalate 20 mg Tablet PO SCH (09:56)
[2023-06-13] MEDS: Apixaban 5 MG TAB PO SCH ×2 (09:56→19:54)
[2023-06-13] MEDS: Isosorbide Mononitrate 20 MG TAB PO SCH ×2 (09:56→19:53)
[2023-06-13] MEDS: Folic Acid 1 MG TAB PO SCH (09:56)
[2023-06-13] MEDS: Calcitriol 0.25 MCG CAP PO SCH (09:56)
[2023-06-13] MEDS: Oxybutynin 5 MG TAB PO SCH ×2 (09:57→19:54)
[2023-06-13] MEDS: Multivit, Therapeutic 1 TAB PO SCH (09:57)
[2023-06-13] MEDS: rOPINIRole HCl 1 MG TAB PO SCH (09:57)
[2023-06-13] MEDS: Gabapentin 100 MG CAP PO SCH ×3 (09:57→19:54)
[2023-06-13] MEDS ORDERED: hydrOXYzine 25 MG TAB PO SCH (15:30)
[2023-06-13] MEDS ORDERED: busPIRone HCl 10 MG TAB PO PRN (16:22)
[2023-06-13] MEDS: Atorvastatin Calcium 20 MG TAB PO SCH (19:54)
[2023-06-14 04:59] LABS: #Eosinphils 0.8 thou/uL (0.0-0.7); #Monocytes 0.8 thou/uL (0.11-0.59); #Neutrophils 4.1 thou/uL (1.40-6.50); %Basophils 0.4 % (0.0-1.0); %Monocytes 11.3 % (0.0-10.0); %Neutrophils 59.4 % (42.0-75.0); Hemoglobin 8.5 g/dL (12.0-16.0); Mean Corpuscular HGB CONC 30.4 g/dL (32.0-36.0); Mean Corpuscular Hemoglobin 34.3 pg (27.0-31.0); Mean Corpuscular Volume 112.9 fl (78.0-98.0); Mean Platelet Volume 10.9 fL (7.4-10.4); Platelet Count 157 10x3/uL (130-400); RBC Distribution Width 20.7 % (11.5-14.5); Red Blood Cell (RBC) Count 2.48 mill/uL (4.20-5.40)
[2023-06-14] MEDS: Calcitriol 0.25 MCG CAP PO SCH (09:14)
[2023-06-14] MEDS: Acetaminophen 325 MG TAB PO PRN (09:14)
[2023-06-14] MEDS: rOPINIRole HCl 1 MG TAB PO SCH (09:14)
[2023-06-14] MEDS: Apixaban 5 MG TAB PO SCH (09:14)
[2023-06-14] MEDS: Oxybutynin 5 MG TAB PO SCH (09:15)
[2023-06-14] MEDS: Multivit, Therapeutic 1 TAB PO SCH (09:15)
[2023-06-14] MEDS: Folic Acid 1 MG TAB PO SCH (09:15)
[2023-06-14] MEDS: Escitalopram Oxalate 20 mg Tablet PO SCH (09:15)
[2023-06-14] MEDS: Isosorbide Mononitrate 20 MG TAB PO SCH (09:15)
[2023-06-14] MEDS: Gabapentin 100 MG CAP PO SCH ×2 (09:15→14:50)
[2023-06-14 19:24] VITALS: BP 122/65; TEMP 98.7
== END 2023-06-14 20:01 | disposition home health service (06) | DRG 193 ==
LOC: T4-A 02:04 → 2NO 06-01 14:16 → OBSVTOIN 06-02 10:18 → T4-A 06-07 13:08
PROVIDERS: ADMIT Student in an Organized Health Care Education/Training Program; ATTEND Family Medicine
PROC: 30233N1 Transfusion of Nonautologous Red Blood Cells into Peripheral Vein, Percutaneous Approach (ICD-10-PCS; principal; 2023-06-01)
PROC: 30233J1 Transfusion of Nonautologous Serum Albumin into Peripheral Vein, Percutaneous Approach (ICD-10-PCS; 2023-06-12)
DX: J18.9 Pneumonia, unspecified organism (principal); I50.33 Acute on chronic diastolic (congestive) heart failure; N18.6 End stage renal disease; D59.11 Warm autoimmune hemolytic anemia; Z68.43 Body mass index [BMI] 50.0-59.9, adult; N25.81 Secondary hyperparathyroidism of renal origin; N17.9 Acute kidney failure, unspecified; I13.2 Hypertensive heart and chronic kidney disease with heart failure and with stage 5 chronic kidney disease, or end stage renal disease; E11.22 Type 2 diabetes mellitus with diabetic chronic kidney disease; R53.1 Weakness; E66.01 Morbid (severe) obesity due to excess calories; I48.0 Paroxysmal atrial fibrillation; F41.9 Anxiety disorder, unspecified; E78.5 Hyperlipidemia, unspecified; M19.90 Unspecified osteoarthritis, unspecified site; K21.9 Gastro-esophageal reflux disease without esophagitis; D63.1 Anemia in chronic kidney disease; Z88.8 Allergy status to other drugs, medicaments and biological substances; Z79.899 Other long term (current) drug therapy; Z90.710 Acquired absence of both cervix and uterus; Z90.49 Acquired absence of other specified parts of digestive tract; R06.02 Shortness of breath; R53.81 Other malaise
CPT/HCPCS: 36415; 36416; 36430; 71045; 80048; 80053; 82274; 82607; 82728; 83010; 83036; 83540; 83550; 83605; 83880; 83970; 84100; 84145; 84207; 84443; 84484; 85025; 85046; 85060; 86850; 86860; 86870; 86880; 86900; 86901; 86922; 87040; 93005; 93010; 93306; 96361; 96365; 96374; 96375; 96376; G0378; J0456; J0696; J0780; J1940; J2405; J2916; J3490; J7050; P9016; P9047; Q5106

== ENCOUNTER 2023-09-27 23:04 | Emergency (ER) | payer MEDICARE, OTHER ==
[2023-09-28] MEDS ORDERED: HYDROcodone/Acetaminophen 5/325 mg Tablet ONE (00:42)
== END 2023-09-28 01:18 | disposition home or self-care (01) ==
LOC: ERS 23:04
DX: M25.511 Pain in right shoulder (principal); I13.2 Hypertensive heart and chronic kidney disease with heart failure and with stage 5 chronic kidney disease, or end stage renal disease; E11.22 Type 2 diabetes mellitus with diabetic chronic kidney disease; N18.6 End stage renal disease; I50.9 Heart failure, unspecified; Z55.6 Problems related to health literacy